=== PATIENT | female | born 1955 | race Caucasian/White ===

== ENCOUNTER → 2020-06-19 13:03 | Outpatient (BNVA) | payer OTHER, SELFPAY | PROVIDERS: PCP Student in an Organized Health Care Education/Training Program; Visit Provider Hospitalist | DX: J44.9 Chronic obstructive pulmonary disease, unspecified (principal); G47.33 Obstructive sleep apnea (adult) (pediatric); Z79.52 Long term (current) use of systemic steroids; Z87.891 Personal history of nicotine dependence; Z99.89 Dependence on other enabling machines and devices | CPT/HCPCS: 99212 ==

== ENCOUNTER 2020-09-19 12:50 | Outpatient (REF) | payer OTHER, SELFPAY ==
[2020-09-19 14:10] LABS: MANUAL DIFF FLAG NO
[2020-09-19 14:20] LABS: Basophils Absolute Auto 0.1 X10*3/uL (0.0-0.2); Basophils Percent Auto 0.6 % (0-2); Eosinophils Absolute Auto 0.4 X10*3/uL (0.0-0.4); Eosinophils Percent Auto 4.1 % (0-4); Hematocrit 44.3 % (37-47); Hemoglobin 14.5 g/dl (12.0-16.0); Imm Gran Abs Auto 0.02 X10*3/uL (0.00-0.03); Imm Gran Pct Auto 0.2 % (0.0-0.4); Lymphocytes Absolute Auto 2.8 X10*3/uL (1.2-4.9); Lymphocytes Percent Auto 33.2 % (20-40); Mean Corpuscular HGB Conc 32.7 g/dl (31.0-35.0); Mean Corpuscular Hemoglobin 29.7 pg (27.0-33.0); Mean Corpuscular Volume 90.8 fL (80-98); Mean Platelet Volume 10.6 fL (9.4-12.3); Monocytes Absolute Auto 0.6 X10*3/uL (0.1-1.2); Monocytes Percent Auto 6.5 % (2-11); Neutrophils Absolute Auto 4.7 X10*3/uL (2.0-8.3); Neutrophils Percent Auto 55.4 % (45-73); Platelet Count 235 X10*3/uL (160-400); Red Blood Count 4.88 X10*6/uL (4.20-5.50); Red Cell Distribution Width 12.5 % (11.0-16.0); White Blood Count 8.5 X10*3/uL (4.8-10.8)
[2020-09-19 15:31] LABS: Erythrocyte Sedimentation Rate 14 MM/HR (0-20)
[2020-09-20 08:22] LABS: Immunoglobulin E 616 kU/L (<OR=114)
[2020-09-20 13:57] LABS: IgA 419 mg/dL (70-320); IgG 1092 mg/dL (600-1540); IgM 110 mg/dL (50-300)
[2020-09-21 08:38] LABS: SARS COV2 IgG Negative (Negative)
== END 2020-09-19 12:51 | disposition home or self-care (01) ==
LOC: HO.LAB 12:50
PROVIDERS: PCP Student in an Organized Health Care Education/Training Program; Visit Provider Hospitalist
DX: J44.9 Chronic obstructive pulmonary disease, unspecified (principal); G47.33 Obstructive sleep apnea (adult) (pediatric); Z79.899 Other long term (current) drug therapy; Z87.891 Personal history of nicotine dependence; Z01.84 Encounter for antibody response examination; Z99.89 Dependence on other enabling machines and devices
CPT/HCPCS: 36415; 82784; 82785; 85025; 85652; 86769; 99212

== ENCOUNTER → 2021-08-24 10:46 | Outpatient (BNVA) | payer OTHER, SELFPAY | PROVIDERS: PCP Student in an Organized Health Care Education/Training Program; Visit Provider Hospitalist | DX: G47.33 Obstructive sleep apnea (adult) (pediatric) (principal); J44.9 Chronic obstructive pulmonary disease, unspecified; Z99.89 Dependence on other enabling machines and devices | CPT/HCPCS: Q3014 ==

== ENCOUNTER 2022-01-31 14:10 | Outpatient (REF) | payer OTHER, SELFPAY ==
--- NOTE | ~2022-01-31 | XR_ITS ---
EXAMINATION: XR CHEST CLINICAL INFORMATION: Cough, unspecified. COMPARISON: Chest done on 10/05/2019. TECHNIQUE: 2 views of the chest were obtained. FINDINGS: Linear pleuroparenchymal airspace disease is noted at both lung bases, appears similar to prior study, consistent with pleuroparenchymal scar. No new airspace abnormalities. The cardiac mediastinal silhouette is within normal limit. Multilevel degenerative spondylosis is present. No evidence of any pleural effusion or pneumothorax. Visualized upper abdomen is unremarkable. Overall no significant change since 10/05/2019. XR/XR chest 2V IMPRESSION: Stable radiographic appearance of the chest, unchanged since 10/05/2019. Specifically, no radiographic evidence of pneumonia.
== END 2022-01-31 14:11 | disposition home or self-care (01) ==
LOC: HO.XRAY 14:10
PROVIDERS: Visit Provider Hospitalist
DX: R05.9 Cough, unspecified (principal); J44.9 Chronic obstructive pulmonary disease, unspecified; G47.33 Obstructive sleep apnea (adult) (pediatric); Z99.89 Dependence on other enabling machines and devices
CPT/HCPCS: 71046; 99212

== ENCOUNTER 2022-05-20 10:14 | Outpatient (REF) | payer OTHER, SELFPAY ==
--- NOTE | 2022-05-20 11:17 | PFT_ITS ---
Forced vital capacity 59%, FEV1 60%, FEV1/FVC ratio is 80. [id number] 59% and MVV 44%. Post bronchodilator therapy, there is no significant change. Total lung capacity 78%. Residual volume 93%. Diffusion capacity 73% CONCLUSION: Findings are consistent with mild restrictive pulmonary disorder and no significant obstructive airway disorder. No response to bronchodilator therapy. Clinical correlation is recommended. The results compared to PFT of 09/30/2019, show that the lung volumes are definitely improved. Diffusion capacity is also slightly improved. Rasheeda Galloway MD MSB/MODL / [id number]
== END 2022-05-20 10:15 | disposition home or self-care (01) ==
LOC: HO.RESP 10:14
PROVIDERS: Visit Provider Hospitalist
DX: J44.9 Chronic obstructive pulmonary disease, unspecified (principal)
CPT/HCPCS: 94060; 94727; 94729

== ENCOUNTER 2022-05-31 11:27 | Outpatient (REF) | payer OTHER, SELFPAY ==
--- NOTE | ~2022-05-31 | XR_ITS ---
EXAMINATION: BILATERAL KNEE CLINICAL INFORMATION: Pain. COMPARISON: None TECHNIQUE: Lateral and sunrise views each knee. FINDINGS: Right knee: There is loss of patellofemoral joint space with periarticular moderate spurring. There are no loose bodies. No bony erosive changes seen. No acute fracture noted. There is mild suprapatellar joint effusion Left knee: There is a loss of patellofemoral compartment joint space with significant periarticular. No loose bodies or bony erosive changes seen. There are enthesophytes along the posterior tibial plateau. No acute fracture or dislocation seen. XR/XR knee LT 2V IMPRESSION: Moderate degenerative arthritic changes bilateral knee. Mild suprapatellar patellar joint effusion right knee.
--- NOTE | ~2022-05-31 | XR_ITS ---
EXAMINATION: BILATERAL KNEE CLINICAL INFORMATION: Pain. COMPARISON: None TECHNIQUE: Lateral and sunrise views each knee. FINDINGS: Right knee: There is loss of patellofemoral joint space with periarticular moderate spurring. There are no loose bodies. No bony erosive changes seen. No acute fracture noted. There is mild suprapatellar joint effusion Left knee: There is a loss of patellofemoral compartment joint space with significant periarticular. No loose bodies or bony erosive changes seen. There are enthesophytes along the posterior tibial plateau. No acute fracture or dislocation seen. XR/XR knee RT 2V IMPRESSION: Moderate degenerative arthritic changes bilateral knee. Mild suprapatellar patellar joint effusion right knee.
--- NOTE | ~2022-05-31 | XR_ITS ---
EXAMINATION: XR KNEE AP STANDING CLINICAL INFORMATION: Knee pain. COMPARISON: None TECHNIQUE: AP bilateral standing view of the knees was obtained. FINDINGS: There is severely loss of medial compartment joint space with periarticular spurring. The lateral compartment joint space is preserved. There is genu varus deformity of bilateral knees slightly greater on the right. No loose bodies, bony erosive changes or fracture seen. XR/XR knee standing BI IMPRESSION: 1. Severe degenerative changes medial compartment both knees with periarticular spurring. 2. There is bilateral genu varus deformity slightly greater on the right.
== END 2022-05-31 11:28 | disposition home or self-care (01) ==
LOC: HO.HOSX 11:27
PROVIDERS: Visit Provider Orthopaedic Surgery
DX: M17.0 Bilateral primary osteoarthritis of knee (principal); E66.01 Morbid (severe) obesity due to excess calories
CPT/HCPCS: 73560; 73565; 99202

== ENCOUNTER → 2022-08-22 12:58 | Outpatient (BNVA) | payer OTHER, SELFPAY | PROVIDERS: PCP Student in an Organized Health Care Education/Training Program; Visit Provider Hospitalist | DX: J44.9 Chronic obstructive pulmonary disease, unspecified (principal); J45.50 Severe persistent asthma, uncomplicated; G47.33 Obstructive sleep apnea (adult) (pediatric) | CPT/HCPCS: 99212 ==

== ENCOUNTER → 2022-09-06 13:37 | Outpatient (BNVA) | payer OTHER, SELFPAY | PROVIDERS: PCP Student in an Organized Health Care Education/Training Program; Visit Provider Hospitalist | DX: J45.50 Severe persistent asthma, uncomplicated (principal) | CPT/HCPCS: 99211 ==

== ENCOUNTER → 2022-11-21 13:03 | Outpatient (BNVA) | payer OTHER, SELFPAY | PROVIDERS: Visit Provider Hospitalist | DX: J45.50 Severe persistent asthma, uncomplicated (principal); J44.9 Chronic obstructive pulmonary disease, unspecified; G47.33 Obstructive sleep apnea (adult) (pediatric); Z23 Encounter for immunization | CPT/HCPCS: 90471; 90677; 99212 ==

== ENCOUNTER → 2023-02-03 13:05 | Outpatient (BNVA) | payer OTHER, SELFPAY | PROVIDERS: Visit Provider Hospitalist | DX: J45.50 Severe persistent asthma, uncomplicated (principal); J44.9 Chronic obstructive pulmonary disease, unspecified; G47.33 Obstructive sleep apnea (adult) (pediatric) | CPT/HCPCS: 99212 ==

== ENCOUNTER → 2023-03-04 13:50 | Outpatient (REF) | payer OTHER, SELFPAY | LOC: HO.SL 13:50 | PROVIDERS: Visit Provider Hospitalist | DX: G47.33 Obstructive sleep apnea (adult) (pediatric) (principal) | CPT/HCPCS: 95806 ==

== ENCOUNTER → 2023-03-04 14:18 | Outpatient (BNV) | payer OTHER, SELFPAY | PROVIDERS: Visit Provider Internal Medicine | DX: G47.33 Obstructive sleep apnea (adult) (pediatric) (principal) | CPT/HCPCS: 95806 ==

== ENCOUNTER 2023-05-05 13:21 | Outpatient (AMB) | payer OTHER, SELFPAY ==
[2023-05-05 13:27] VITALS: PULSE 89; O2SAT 95; BMI 43.5
--- NOTE | 2023-05-05 13:27 | A.OFFVIS_ITS ---
Intake Vital Signs 05/05/23 13:27 Height 5 ft 2 in Weight 238 lb 1.588 oz BMI 43.5 Pulse 89 Pulse Source Pulse Oximeter Pulse Oximetry (%) 95 Oxygen Delivery Method Room Air Intake Visit Reasons: COPD Allergies seafood Allergy (Severe, Verified 05/05/23 13:28) Swelling and Hives ibuprofen [From Motrin] Allergy (Mild, Verified 05/05/23 13:28) Throat Closed montelukast Allergy (Mild, Verified 05/05/23 13:28) Rash benzodiazepine Allergy (Mild, Uncoded 05/05/23 13:28) Rash HPI HPI Comments History of Present Illness Details 68-year-old lady, former under 10 pack-y ear smoker, quit 30 years prior with underlying history of obesity, MIKAELA on CPAP, asthma on Xolair and Trelegy and possible diagnosis of COPD who is transferring her care from [facility]. Patient states that her respiratory symptoms have been well controlled on the current regimen of trilogy, albuterol MDI, and Xolair. She has had CPAP setup with [employer], however she has not been receiving her supplies. She denies any recent asthma exacerbations. She is having difficulties with her CPAP are. Her CPAP is more than 5 years old and she did get initially from [employer]. The CPAP therapy has been affecting beneficial. However, recently she started developing mold inside her machine. She is very reluctant to use it specially because her comorbidities and risks of worsening respiratory status due to the mold exposure. I did call [employer], her [employer] company to see if any arrangements can be made. She has had multiple sleep studies the last when she did get was that [facility]. Did did recommend CPAP of 12 cm. Therefore, I will put her on APAP with a pressure of 10 to 14. 08/22/2022 the patient is here for sick visit. She has continued to have worsening respiratory symptoms with significant wheezing and shortness of breath. Moderate severity. She has been using her nebulizer treatment multiple times a day. She also continues on the Trelegy with good response. Unfortunately, she had a reaction to the generic Daliresp. she had been responding very well to the brand Daliresp and she had significant weight loss and also good control of her asthma. Unfortunately when she stop the brand Daliresp her symptoms started worsening again. She also been on Xolair it does not seem like his controlling her asthma at this time. The patient is going to require additional prednisone at this time. I do believe that considering a different biologic agents such as Dupixent will be a better option for her. Initially I thought that we will provide her the Xolair so therefore I started the process. We have to reach out to the patient to see if this is something that she would want to do. Therefore will maximize her respiratory therapy and see about switching her biologic regimen. In the meantime the patient can also start course of prednisone. 11/21/2022 the patient is here for a pulmonary follow-up visit. Overall she is feeling a lot better. She was recently changed over to Dupixent. Seems to be working better for her. In addition to that she continues on the Trelegy 200. She finally got the brand Daliresp and she is back to taking it. The 1st very happy that her respiratory status is getting better. It may be the case that when she continues on the Dupixent if she continues to do well we can decrease her Trelegy to 100 mcg instead. The patient is sleeping relatively well. Sometimes she has a hard time falling sick although she does have sleep aid. She denies any significant daytime drowsiness he is if she is able to sleep in effective night. Therefore will continue with positional therapy at this time. 02/03/2023 the patient is here for a pulmonary follow-up visit. The patient is doing well. She recently came back from a trip to [place]. It was very hot therapy. She had to use her respiratory therapy more often. Although she did not any prednisone. She has been back on Daliresp which is helping. She is also taking the Dupixent every 2 weeks also has been helpful. She tolerated the decrease in the Trelegy to the 100 mcg dose. However she does have some daytime drowsiness. Her Green score is elevated 12/24. She does have a history sleep apnea in the past. Will go ahead and repeat her home sleep study at this time. I do believe that if she needs to be on CPAP we need to help her tolerate the therapy. Will follow up with the patient after her sleep study. 05/05/2023 the patient is here for a pulmonary follow-up visit. The patient continues to have significant daytime drowsiness. Her Green score is elevated 11/24. We did review her sleep study. She does have significant sleep apnea which is moderate to severe. She has significant hypoxia and significant tachycardia. We talked about the importance of CPAP. We talked about different alternatives which are not optimal for her. Therefore, the best option for her is to use CPAP. The patient is open to restarting. She knows that she needs use it 4 hours a night. will go ahead and order through a local [employer] company the patient will be started on therapy as soon as possible. In the meantime her asthma seems to be good control with the Dupixent. She is also using the Trelegy inhaler. She still having some wheezing but she wants to decrease the Trelegy to the 100 mcg dose which I believe is reasonable. [facility] Medical History (Updated 08/22/22 @ 19:57 by Daniel Schuster MD) Asthma MIKAELA (obstructive sleep apnea) MIKAELA on CPAP Asthma-COPD overlap syndrome Social History (Updated 05/31/22 @ 11:57 by Keren Al RN) Patient Tobacco Use Status: Former Tobacco user Tobacco use type: Cigarette Years Smoked: 4 years Current occupational status: disabled Review of Systems Const Reports daytime sleepiness, Reports difficulty sleeping, Reports headache(s), Denies night sweats and Reports snoring ENT Denies change in voice, Reports headache(s), Denies lip swelling, Denies mouth pain, Reports nasal congestion, Reports nasal discharge and Denies tongue swelling Card Denies chest pain, Denies dyspnea and Reports dyspnea on exertion Resp Reports cough, Denies dyspnea, Reports dyspnea on exertion, Reports snoring and Reports wheezing GI Denies abdominal pain Musc Reports abnormal gait and Reports arthralgias Neuro Denies Neuro-related abnormal movements, Reports abnormal gait and Reports headache(s) Psych Denies no additional complaints Shayne/Lymph Denies easy bleeding and Denies lymphadenopathy Aller/Immun Denies lip swelling, Denies tongue swelling and Reports wheezing Physical Exam Vital Signs: Last Vital Signs Pulse 89 05/05/23 13:27 Pulse Ox 95 05/05/23 13:27 Oxygen Delivery Method Room Air 05/05/23 13:27 BMI result Body Mass Index 43.5 Const General: alert HEENT General nose exam: Abnormal external nose present and Nasal discharge present Eyes Pupils: Equal, round and reactive pupils present Neck Neck: Yes normal visual inspection, Yes full ROM and Yes no lymphadenopathy Chest Chest palpation & inspection: normal inspection of the chest Resp Auscultation: wheezes and diminished lung sounds Cardio Rate: regular rate Rhythm: regular rhythm Heart sounds: S1 normal heart sound present and S2 normal heart sound present GI Palpation (GI): Soft to palpation and nontender Auscultation: normal bowel sounds General: Yes no CVA tenderness Back/Spine/Pelvis Back: no CVA tenderness Skin General skin exam: rashes and/or lesions noted Neuro Cranial nerves: Yes Equal, round and reactive pupils present Assessment & Plan Assessment & Plan (1) Asthma: Code(s): J45.909 - Unspecified asthma, uncomplicated Qualifiers: Asthma complication type: uncomplicated Asthma persistence: persistent Asthma severity: severe Qualified Code(s): J45.50 - Severe persistent asthma, uncomplicated (2) MIKAELA (obstructive sleep apnea): Code(s): G47.33 - Obstructive sleep apnea (adult) (pediatric) (3) Asthma-COPD overlap syndrome: Code(s): J44.9 - Chronic obstructive pulmonary disease, unspecified Plan: Increase Daliresp 500 mcg Add Budesonide Continue Trelegy Zpack Plan continue Dupixent decrease Trelegy 100mcg Continue Daliresp 500 mcg daily short-acting beta agonist as needed start APAP follow-up in 3-4 months Medications: New nmxqfmktpiw-erzjsgtbo-qiyonkcd 100-62.5-25 mcg (Trelegy Ellipta) 1 inh inhalation DAILY 30 days 60 ea 11RF J44.9 - Chronic obstructive pulmonary disease, unspecified Refilled albuterol sulfate 90 mcg/actuation (ProAir HFA) 2 puffs inhalation Q6H 30 days PRN 8.5 grams 11RF shortness of breath or wheezing J45.909 - Unspecified asthma, uncomplicated Discontinued wguhhknlfsz-aqnzhqqym-cdfattlc 200-62.5-25 mcg (Trelegy Ellipta) Discontinued Reason: Doctor's Order 1 inh inhalation DAILY 30 days 60 ea 12RF Coding Level of Care Code Est Pt Level 4 (43492) Diagnoses Severe persistent asthma without complication J45.50 Asthma complication type: uncomplicated Asthma persistence: persistent Asthma severity: severe MIKAELA (obstructive sleep apnea) G47.33 Asthma-COPD overlap syndrome J44.9 Time Spent (min) 17
== END 2023-05-05 14:02 | disposition home or self-care (01) ==
PROVIDERS: Visit Provider Hospitalist
DX: J45.50 Severe persistent asthma, uncomplicated (principal); G47.33 Obstructive sleep apnea (adult) (pediatric); J44.9 Chronic obstructive pulmonary disease, unspecified
CPT/HCPCS: 99214

== ENCOUNTER → 2023-05-05 13:21 | Outpatient (BNVA) | payer OTHER, SELFPAY | PROVIDERS: Visit Provider Hospitalist | DX: J45.50 Severe persistent asthma, uncomplicated (principal); G47.33 Obstructive sleep apnea (adult) (pediatric); J44.9 Chronic obstructive pulmonary disease, unspecified | CPT/HCPCS: 99212 ==

== ENCOUNTER 2023-05-19 13:25 | Outpatient (AMB) | payer OTHER, SELFPAY ==
[2023-05-19 13:29] VITALS: BP 132/77; PULSE 94; O2SAT 95; BMI 48.2
--- NOTE | 2023-05-19 13:29 | A.OFFVIS_ITS ---
Intake Vital Signs 05/19/23 13:29 Height 5 ft 2 in Weight 263 lb 7.238 oz BMI 48.2 BP 132/77 Blood Pressure Location Lt brachial Position Sitting Pulse 94 Pulse Source Doppler Pulse Oximetry (%) 95 Oxygen Delivery Method Room Air Intake Visit Reasons: Asthma Flare-Ups Allergies seafood Allergy (Severe, Verified 05/19/23 13:31) Swelling and Hives ibuprofen [From Motrin] Allergy (Mild, Verified 05/19/23 13:31) Throat Closed montelukast Allergy (Mild, Verified 05/19/23 13:31) Rash benzodiazepine Allergy (Mild, Uncoded 05/05/23 13:28) Rash HPI HPI Comments History of Present Illness Details 68-year-old lady, former under 10 pack-y ear smoker, quit 30 years prior with underlying history of obesity, MIKAELA on CPAP, asthma on Xolair and Trelegy and possible diagnosis of COPD who is transferring her care from [facility]. Patient states that her respiratory symptoms have been well controlled on the current regimen of trilogy, albuterol MDI, and Xolair. She has had CPAP setup with [email or web address], however she has not been receiving her supplies. She denies any recent asthma exacerbations. She is having difficulties with her CPAP are. Her CPAP is more than 5 years old and she did get initially from [email or web address]. The CPAP therapy has been affecting beneficial. However, recently she started developing mold inside her machine. She is very reluctant to use it specially because her comorbidities and risks of worsening respiratory status due to the mold exposure. I did call [email or web address], her [employer] company to see if any arrangements can be made. She has had multiple sleep studies the last when she did get was that [facility]. Did did recommend CPAP of 12 cm. Therefore, I will put her on APAP with a pressure of 10 to 14. 08/22/2022 the patient is here for sick visit. She has continued to have worsening respiratory symptoms with significant wheezing and shortness of breath. Moderate severity. She has been using her nebulizer treatment multiple times a day. She also continues on the Trelegy with good response. Unfortunately, she had a reaction to the generic Daliresp. she had been responding very well to the brand Daliresp and she had significant weight loss and also good control of her asthma. Unfortunately when she stop the brand Daliresp her symptoms started worsening again. She also been on Xolair it does not seem like his controlling her asthma at this time. The patient is going to require additional prednisone at this time. I do believe that considering a different biologic agents such as Dupixent will be a better option for her. Initially I thought that we will provide her the Xolair so therefore I started the process. We have to reach out to the patient to see if this is something that she would want to do. Therefore will maximize her respiratory therapy and see about switching her biologic regimen. In the meantime the patient can also start course of prednisone. 11/21/2022 the patient is here for a pulmonary follow-up visit. Overall she is feeling a lot better. She was recently changed over to Dupixent. Seems to be working better for her. In addition to that she continues on the Trelegy 200. She finally got the brand Daliresp and she is back to taking it. The 1st very happy that her respiratory status is getting better. It may be the case that when she continues on the Dupixent if she continues to do well we can decrease her Trelegy to 100 mcg instead. The patient is sleeping relatively well. Sometimes she has a hard time falling sick although she does have sleep aid. She denies any significant daytime drowsiness he is if she is able to sleep in effective night. Therefore will continue with positional therapy at this time. 02/03/2023 the patient is here for a pulmonary follow-up visit. The patient is doing well. She recently came back from a trip to [place]. It was very hot therapy. She had to use her respiratory therapy more often. Although she did not any prednisone. She has been back on Daliresp which is helping. She is also taking the Dupixent every 2 weeks also has been helpful. She tolerated the decrease in the Trelegy to the 100 mcg dose. However she does have some daytime drowsiness. Her Sterling score is elevated 08/10. She does have a history sleep apnea in the past. Will go ahead and repeat her home sleep study at this time. I do believe that if she needs to be on CPAP we need to help her tolerate the therapy. Will follow up with the patient after her sleep study. 05/05/2023 the patient is here for a pulmonary follow-up visit. The patient continues to have significant daytime drowsiness. Her Sterling score is elevated 11/24. We did review her sleep study. She does have significant sleep apnea which is moderate to severe. She has significant hypoxia and significant tachycardia. We talked about the importance of CPAP. We talked about different alternatives which are not optimal for her. Therefore, the best option for her is to use CPAP. The patient is open to restarting. She knows that she needs use it 4 hours a night. will go ahead and order through a local DME company the patient will be started on therapy as soon as possible. In the meantime her asthma seems to be good control with the Dupixent. She is also using the Trelegy inhaler. She still having some wheezing but she wants to decrease the Trelegy to the 100 mcg dose which I believe is reasonable. 05/19/2023 the patient is here for a pulmonary follow-up visit. The patient continues to have significant daytime drowsiness. Her Sterling score continues to be elevated 11/24. The patient does have moderate to severe sleep apnea with significant hypoxia significant tachycardia during her apneic episodes. She needs to start APAP LETY. The patient had tried CPAP in the past but was not able to tolerated. Now she understands with increased cardiovascular risk factors that the CPAP therapy is very important. She is eager to get back to using it. Part the major issue was the mask fitting. We did talk about different masks chest the F30 I mask which may be a good fit for her. Her asthma continues to be in good control with Dupixent. She continues on the Trelegy and we had decrease the dose to the 100 mcg dose which she seems to be tolerating since the last visit. We will request a APAP machine from a DME company in order for her to be started on therapy as soon as possible. [facility] Medical History (Updated 08/22/22 @ 19:57 by Daniel Schuster MD) Asthma MIKAELA (obstructive sleep apnea) MIKAELA on CPAP Asthma-COPD overlap syndrome Social History Patient Tobacco Use Status: Former Tobacco user Tobacco use type: Cigarette Years Smoked: 4 years Current occupational status: disabled Review of Systems Const Reports daytime sleepiness, Reports difficulty sleeping, Reports headache(s), Denies night sweats and Reports snoring ENT Denies change in voice, Reports headache(s), Denies lip swelling, Denies mouth pain, Reports nasal congestion, Reports nasal discharge and Denies tongue swelling Card Denies chest pain, Denies dyspnea and Reports dyspnea on exertion Resp Reports cough, Denies dyspnea, Reports dyspnea on exertion, Reports snoring and Reports wheezing GI Denies abdominal pain Musc Reports abnormal gait and Reports arthralgias Neuro Denies Neuro-related abnormal movements, Reports abnormal gait and Reports headache(s) Psych Denies no additional complaints Shayne/Lymph Denies easy bleeding and Denies lymphadenopathy Aller/Immun Denies lip swelling, Denies tongue swelling and Reports wheezing Physical Exam Vital Signs: Last Vital Signs Pulse 94 05/19/23 13:29 BP 132/77 05/19/23 13:29 Pulse Ox 95 05/19/23 13:29 Oxygen Delivery Method Room Air 05/19/23 13:29 BMI result Body Mass Index 48.2 Const General: alert HEENT General nose exam: Abnormal external nose present and Nasal discharge present Eyes Pupils: Equal, round and reactive pupils present Neck Neck: Yes normal visual inspection, Yes full ROM and Yes no lymphadenopathy Chest Chest palpation & inspection: normal inspection of the chest Resp Auscultation: no wheezes and diminished lung sounds Cardio Rate: regular rate Rhythm: regular rhythm Heart sounds: S1 normal heart sound present and S2 normal heart sound present GI Palpation (GI): Soft to palpation and nontender Auscultation: normal bowel sounds General: Yes no CVA tenderness Back/Spine/Pelvis Back: no CVA tenderness Skin General skin exam: rashes and/or lesions noted Neuro Cranial nerves: Yes Equal, round and reactive pupils present Assessment & Plan Assessment & Plan (1) Asthma: Code(s): J45.909 - Unspecified asthma, uncomplicated Qualifiers: Asthma complication type: uncomplicated Asthma persistence: persistent Asthma severity: severe Qualified Code(s): J45.50 - Severe persistent asthma, uncomplicated (2) MIKAELA (obstructive sleep apnea): Code(s): G47.33 - Obstructive sleep apnea (adult) (pediatric) (3) Asthma-COPD overlap syndrome: Code(s): J44.9 - Chronic obstructive pulmonary disease, unspecified Plan: Increase Daliresp 500 mcg Add Budesonide Continue Trelegy Zpack Plan continue Dupixent continue Trelegy 100mcg Continue Daliresp 500 mcg daily (allergic to the generic medicine) short-acting beta agonist as needed start APAP follow-up in 6 months Coding Level of Care Code Est Pt Level 4 (32215) Diagnoses Severe persistent asthma without complication J45.50 Asthma complication type: uncomplicated Asthma persistence: persistent Asthma severity: severe MIKAELA (obstructive sleep apnea) G47.33 Asthma-COPD overlap syndrome J44.9 Time Spent (min) 16
== END 2023-05-19 14:02 | disposition home or self-care (01) ==
PROVIDERS: Visit Provider Hospitalist
DX: J45.50 Severe persistent asthma, uncomplicated (principal); G47.33 Obstructive sleep apnea (adult) (pediatric); J44.9 Chronic obstructive pulmonary disease, unspecified
CPT/HCPCS: 99214

== ENCOUNTER → 2023-05-19 13:25 | Outpatient (BNVA) | payer OTHER, SELFPAY | PROVIDERS: Visit Provider Hospitalist | DX: J45.50 Severe persistent asthma, uncomplicated (principal); J44.9 Chronic obstructive pulmonary disease, unspecified; G47.33 Obstructive sleep apnea (adult) (pediatric) | CPT/HCPCS: 99212 ==

== ENCOUNTER 2023-06-19 13:22 | Outpatient (AMB) | payer OTHER, SELFPAY ==
[2023-06-19 13:27] VITALS: PULSE 88; O2SAT 95; BMI 48.2
--- NOTE | 2023-06-19 13:27 | A.OFFVIS_ITS ---
Intake Vital Signs 06/19/23 13:27 Height 5 ft 2 in Weight 263 lb 7.238 oz BMI 48.2 Pulse 88 Pulse Source Pulse Oximeter Pulse Oximetry (%) 95 Oxygen Delivery Method Room Air Intake Visit Reasons: Sick Visit/Shortness of Breath Supervisor Marble Required: No Allergies seafood Allergy (Severe, Verified 06/19/23 13:28) Swelling and Hives ibuprofen [From Motrin] Allergy (Mild, Verified 06/19/23 13:28) Throat Closed montelukast Allergy (Mild, Verified 06/19/23 13:28) Rash benzodiazepine Allergy (Mild, Uncoded 06/19/23 13:28) Rash HPI HPI Comments History of Present Illness Details 68-year-old lady, former under 10 pack-y ear smoker, quit 30 years prior with underlying history of obesity, MIKAELA on CPAP, asthma on Xolair and Trelegy and possible diagnosis of COPD who is transferring her care from [facility] pulmonary. Patient states that her respiratory symptoms have been well controlle d on the current regimen of trilogy, albuterol MDI, and Xolair. She has had CPAP setup with [facility], however she has not been receiving her supplies. She denies any recent asthma exacerbations. She is having difficulties with her CPAP are. Her CPAP is more than 5 years old and she did get initially from [facility]. The CPAP therapy has been affecting beneficial. However, recently she started developing mold inside her machine. She is very reluctant to use it specially because her comorbidities and risks of worsening respiratory status due to the mold exposure. I did call [employer], her [employer] company to see if any arrangements can be made. She has had multiple sleep studies the last when she did get was that [facility]. Did did recommend CPAP of 12 cm. Therefore, I will put her on APAP with a pressure of 10 to 14. 08/22/2022 the patient is here for sick visit. She has continued to have worsening respiratory symptoms with significant wheezing and shortness of breath. Moderate severity. She has been using her nebulizer treatment multiple times a day. She also continues on the Trelegy with good response. Unfortunately, she had a reaction to the generic Daliresp. she had been responding very well to the brand Daliresp and she had significant weight loss and also good control of her asthma. Unfortunately when she stop the brand Daliresp her symptoms started worsening again. She also been on Xolair it does not seem like his controlling her asthma at this time. The patient is going to require additional prednisone at this time. I do believe that considering a different biologic agents such as Dupixent will be a better option for her. Initially I thought that we will provide her the Xolair so therefore I started the process. We have to reach out to the patient to see if this is something that she would want to do. Therefore will maximize her respiratory therapy and see about switching her biologic regimen. In the meantime the patient can also start course of prednisone. 11/21/2022 the patient is here for a pulmonary follow-up visit. Overall she is feeling a lot better. She was recently changed over to Dupixent. Seems to be working better for her. In addition to that she continues on the Trelegy 200. She finally got the brand Daliresp and she is back to taking it. The 1st very happy that her respiratory status is getting better. It may be the case that when she continues on the Dupixent if she continues to do well we can decrease her Trelegy to 100 mcg instead. The patient is sleeping relatively well. Sometimes she has a hard time falling sick although she does have sleep aid. She denies any significant daytime drowsiness he is if she is able to sleep in effective night. Therefore will continue with positional therapy at this time. 02/03/2023 the patient is here for a pulmonary follow-up visit. The patient is doing well. She recently came back from a trip to [place]. It was very hot therapy. She had to use her respiratory therapy more often. Although she did not any prednisone. She has been back on Daliresp which is helping. She is also taking the Dupixent every 2 weeks also has been helpful. She tolerated the decrease in the Trelegy to the 100 mcg dose. However she does have some daytime drowsiness. Her [place] score is elevated 1224. She does have a history sleep apnea in the past. Will go ahead and repeat her home sleep study at this time. I do believe that if she needs to be on CPAP we need to help her tolerate the therapy. Will follow up with the patient after her sleep study. 05/05/2023 the patient is here for a pulmonary follow-up visit. The patient continues to have significant daytime drowsiness. Her [place] score is elevated 11/24. We did review her sleep study. She does have significant sleep apnea which is moderate to severe. She has significant hypoxia and significant tachycardia. We talked about the importance of CPAP. We talked about different alternatives which are not optimal for her. Therefore, the best option for her is to use CPAP. The patient is open to restarting. She knows that she needs use it 4 hours a night. will go ahead and order through a local DME company the patient will be started on therapy as soon as possible. In the meantime her asthma seems to be good control with the Dupixent. She is also using the Trelegy inhaler. She still having some wheezing but she wants to decrease the Trelegy to the 100 mcg dose which I believe is reasonable. 05/19/2023 the patient is here for a pulmonary follow-up visit. The patient continues to have significant daytime drowsiness. Her [place] score continues to be elevated 11/24. The patient does have moderate to severe sleep apnea with significant hypoxia significant tachycardia during her apneic episodes. She needs to start APAP LETY. The patient had tried CPAP in the past but was not able to tolerated. Now she understands with increased cardiovascular risk factors that the CPAP therapy is very important. She is eager to get back to using it. Part the major issue was the mask fitting. We did talk about different masks chest the F30 I mask which may be a good fit for her. Her asthma continues to be in good control with Dupixent. She continues on the Trelegy and we had decrease the dose to the 100 mcg dose which she seems to be tolerating since the last visit. We will request a APAP machine from a DME company in order for her to be started on therapy as soon as possible. 06/19/2023 the patient is here for sick visit. Apparently she was in her usual state health until recently when she went to [place] with her family. While she was there she did a lot of walking. When she came back she started developing worsening chest tightness and cough. Moderate severity. Feels congested but can not expectorate. Denies any fevers or chills. She did get toe state for COVID-19 which was negative. The patient continues use her respir atory therapy her nebulizer although she has not seen any significant improvement. We did bring urine. She did get vaccinated for RSV which is reassuring. Still I did a flu/ RSV/ COVID swab. It all turned out negative. The patient does have increased chest tightness and wheezing with prolonged expiratory phase. She will be treated for an asthma exacerbation. If the patient is no better she will call back the office for further evaluation. [facility] Medical History (Updated 06/19/23 @ 22:49 by Daniel Schuster MD) Asthma MIKAELA (obstructive sleep apnea) MIKAELA on CPAP Asthma-COPD overlap syndrome Social History Patient Tobacco Use Status: Former Tobacco user Tobacco use type: Cigarette Years Smoked: 4 years Current occupational status: disabled Review of Systems Const Reports daytime sleepiness, Reports difficulty sleeping, Reports fatigue, Denies fever(s), Reports headache(s), Denies night sweats and Reports snoring ENT Denies change in voice, Reports headache(s), Denies lip swelling, Denies mouth pain, Reports nasal congestion, Reports nasal discharge and Denies tongue swelling Card Denies chest pain, Denies dyspnea and Reports dyspnea on exertion Resp Reports chest congestion, Reports cough, Denies dyspnea, Reports dyspnea on exertion, Reports snoring and Reports wheezing GI Denies abdominal pain Musc Reports abnormal gait and Reports arthralgias Neuro Denies Neuro-related abnormal movements, Reports abnormal gait and Reports headache(s) Psych Denies no additional complaints Endo Reports fatigue Shayne/Lymph Denies easy bleeding and Denies lymphadenopathy Aller/Immun Denies lip swelling, Denies tongue swelling and Reports wheezing Physical Exam Vital Signs: Last Vital Signs Pulse 88 06/19/23 13:27 Pulse Ox 95 06/19/23 13:27 Oxygen Delivery Method Room Air 06/19/23 13:27 BMI result Body Mass Index 48.2 Const General: no acute distress and alert HEENT General nose exam: Abnormal external nose present and Nasal discharge present Eyes Pupils: Equal, round and reactive pupils present Neck Neck: Yes normal visual inspection, Yes full ROM and Yes no lymphadenopathy Chest Chest palpation & inspection: normal inspection of the chest Resp Effort & Inspection: prolonged expiratory phase Auscultation: wheezes and diminished lung sounds Cardio Rate: regular rate Rhythm: regular rhythm Heart sounds: S1 normal heart sound present and S2 normal heart sound present GI Palpation (GI): Soft to palpation and nontender Auscultation: normal bowel sounds General: Yes no CVA tenderness Back/Spine/Pelvis Back: no CVA tenderness Skin General skin exam: rashes and/or lesions noted Neuro Cranial nerves: Yes Equal, round and reactive pupils present Assessment & Plan Assessment & Plan (1) Asthma: Code(s): J45.909 - Unspecified asthma, uncomplicated Qualifiers: Asthma complication type: with acute exacerbation Asthma persistence: persistent Asthma severity: severe Qualified Code(s): J45.51 - Severe persistent asthma with (acute) exacerbation (2) MIKAELA (obstructive sleep apnea): Code(s): G47.33 - Obstructive sleep apnea (adult) (pediatric) (3) Asthma-COPD overlap syndrome: Code(s): J44.9 - Chronic obstructive pulmonary disease, unspecified Plan: Increase Daliresp 500 mcg Add Budesonide Continue Trelegy Zpack Plan Start Predniaone start Doxycycline Nebulizer therapy continue Dupixent continue Trelegy 100mcg Continue Daliresp 500 mcg daily (allergic to the generic medicine) short-acting beta agonist as needed start APAP, has not heard from her [employer] company as of yet follow-up in 6 months Orders: Orders SARS-CoV2/FLU/RSV Today J45.909 - Unspecified asthma, uncomplicated Medications: New doxycycline hyclate 100 mg PO BID 10 days 20 caps 0RF prednisone PO daily; Take 2 tabs daily x 5 days, then 1 tablet daily x 5 days 10 days 15 tabs 0RF Refilled albuterol sulfate 2.5 mg (3 mL) inhalation Q4H 30 days PRN 360 mL 11RF shortness of breath or wheezing Coding Level of Care Code Est Pt Level 4 (72671) Diagnoses Severe persistent asthma with acute exacerbation J45.51 Asthma complication type: with acute exacerbation Asthma persistence: persistent Asthma severity: severe MIKAELA (obstructive sleep apnea) G47.33 Asthma-COPD overlap syndrome J44.9 Time Spent (min) 16
== END 2023-06-19 13:44 | disposition home or self-care (01) ==
PROVIDERS: Visit Provider Hospitalist
DX: J45.51 Severe persistent asthma with (acute) exacerbation (principal); G47.33 Obstructive sleep apnea (adult) (pediatric); J44.9 Chronic obstructive pulmonary disease, unspecified
CPT/HCPCS: 99214

== ENCOUNTER 2023-06-19 13:22 | Outpatient (REF) | payer OTHER, SELFPAY ==
[2023-06-19 14:30] LABS: Influenza A PCR NEGATIVE (Negative); Influenza B PCR NEGATIVE (Negative); Resp Syncy Virus RNA Qual PCR NEGATIVE (Negative); SARS COV2 PCR INHOUSE NEGATIVE (Negative)
== END 2023-06-19 13:23 | disposition home or self-care (01) ==
LOC: CF 13:22
PROVIDERS: Visit Provider Hospitalist
DX: J44.9 Chronic obstructive pulmonary disease, unspecified (principal); J45.51 Severe persistent asthma with (acute) exacerbation; R06.02 Shortness of breath; G47.33 Obstructive sleep apnea (adult) (pediatric); Z87.891 Personal history of nicotine dependence; Z99.89 Dependence on other enabling machines and devices
CPT/HCPCS: 0241U; 99212

== ENCOUNTER 2023-11-03 14:12 | Outpatient (AMB) | payer OTHER, SELFPAY ==
[2023-11-03 14:15] VITALS: PULSE 81; O2SAT 96
--- NOTE | 2023-11-03 14:15 | MHC.OFFVIS ---
Intake Vital Signs 11/03/23 14:15 Height 5 ft 2 in Weight 26 lb BMI 4.8 Pulse 81 Pulse Source Pulse Oximeter Pulse Oximetry (%) 96 Oxygen Delivery Method Room Air Intake Visit Reasons: COPD Pst Supervisor Required: No Allergies seafood Allergy (Severe, Verified 11/03/23 14:16) Swelling and Hives ibuprofen [From Motrin] Allergy (Mild, Verified 11/03/23 14:16) Throat Closed montelukast Allergy (Mild, Verified 11/03/23 14:16) Rash benzodiazepine Allergy (Mild, Uncoded 11/03/23 14:16) Rash HPI HPI Comments History of Present Illness Details 68-year-old lady, former under 10 pack-year smoker, quit 30 years prior with underlying history of obesity, MIKAELA on CPAP, asthma on Xolair and Trelegy and possible diagnosis of COPD who is transferring her care from [facility]. Patient states that her respiratory symptoms have been well controlled on the current regimen of trilogy, albuterol MDI, and Xolair. She has had CPAP setup with [facility] [facility], however she has not been receiving her supplies. She denies any recent asthma exacerbations. She is having difficulties with her CPAP are. Her CPAP is more than 5 years old and she did get initially from [facility] [facility]. The CPAP therapy has been affecting beneficial. However, recently she started developing mold inside her machine. She is very reluctant to use it specially because her comorbidities and risks of worsening respiratory status due to the mold exposure. I did call [employer], her [employer] company to see if any arrangements can be made. She has had multiple sleep studies the last when she did get was that [facility]. Did did recommend CPAP of 12 cm. Therefore, I will put her on APAP with a pressure of 10 to 14. 08/22/2022 the patient is here for sick visit. She has continued to have worsening respiratory symptoms with significant wheezing and shortness of breath. Moderate severity. She has been using her nebulizer treatment multiple times a day. She also continues on the Trelegy with good response. Unfortunately, she had a reaction to the generic Daliresp. she had been responding very well to the brand Daliresp and she had significant weight loss and also good control of her asthma. Unfortunately when she stop the brand Daliresp her symptoms started worsening again. She also been on Xolair it does not seem like his controlling her asthma at this time. The patient is going to require additional prednisone at this time. I do believe that considering a different biologic agents such as Dupixent will be a better option for her. Initially I thought that we will provide her the Xolair so therefore I started the process. We have to reach out to the patient to see if this is something that she would want to do. Therefore will maximize her respiratory therapy and see about switching her biologic regimen. In the meantime the patient can also start course of prednisone. 11/21/2022 the patient is here for a pulmonary follow-up visit. Overall she is feeling a lot better. She was recently changed over to Dupixent. Seems to be working better for her. In addition to that she continues on the Trelegy 200. She finally got the brand Daliresp and she is back to taking it. The 1st very happy that her respiratory status is getting better. It may be the case that when she continues on the Dupixent if she continues to do well we can decrease her Trelegy to 100 mcg instead. The patient is sleeping relatively well. Sometimes she has a hard time falling sick although she does have sleep aid. She denies any significant daytime drowsiness he is if she is able to sleep in effective night. Therefore will continue with positional therapy at this time. 02/03/2023 the patient is here for a pulmonary follow-up visit. The patient is doing well. She recently came back from a trip to [place]. It was very hot therapy. She had to use her respiratory therapy more often. Although she did not any prednisone. She has been back on Daliresp which is helping. She is also taking the Dupixent every 2 weeks also has been helpful. She tolerated the decrease in the Trelegy to the 100 mcg dose. However she does have some daytime drowsiness. Her [place] score is elevated 12/24. She does have a history sleep apnea in the past. Will go ahead and repeat her home sleep study at this time. I do believe that if she needs to be on CPAP we need to help her tolerate the therapy. Will follow up with the patient after her sleep study. 05/05/2023 the patient is here for a pulmonary follow-up visit. The patient continues to have significant daytime drowsiness. Her [place] score is elevated 11/24. We did review her sleep study. She does have significant sleep apnea which is moderate to severe. She has significant hypoxia and significant tachycardia. We talked about the importance of CPAP. We talked about different alternatives which are not optimal for her. Therefore, the best option for her is to use CPAP. The patient is open to restarting. She knows that she needs use it 4 hours a night. will go ahead and order through a local DME company the patient will be started on therapy as soon as possible. In the meantime her asthma seems to be good control with the Dupixent. She is also using the Trelegy inhaler. She still having some wheezing but she wants to decrease the Trelegy to the 100 mcg dose which I believe is reasonable. 05/19/2023 the patient is here for a pulmonary follow-up visit. The patient continues to have significant daytime drowsiness. Her [place] score continues to be elevated 07/11. The patient does have moderate to severe sleep apnea with significant hypoxia significant tachycardia during her apneic episodes. She needs to start APAP LETY. The patient had tried CPAP in the past but was not able to tolerated. Now she understands with increased cardiovascular risk factors that the CPAP therapy is very important. She is eager to get back to using it. Part the major issue was the mask fitting. We did talk about different masks chest the F30 I mask which may be a good fit for her. Her asthma continues to be in good control with Dupixent. She continues on the Trelegy and we had decrease the dose to the 100 mcg dose which she seems to be tolerating since the last visit. We will request a APAP machine from a DME company in order for her to be started on therapy as soon as possible. 06/19/2023 the patient is here for sick visit. Apparently she was in her usual state health until recently when she went to [place] with her family. While she was there she did a lot of walking. When she came back she started developing worsening chest tightness and cough. Moderate severity. Feels congested but can not expectorate. Denies any fevers or chills. She did get toe state for COVID-19 which was negative. The patient continues use her respiratory therapy her nebulizer although she has not seen any significant improvement. We did bring urine. She did get vaccinated for RSV which is reassuring. Still I did a flu/ RSV/ COVID swab. It all turned out negative. The patient does have increased chest tightness and wheezing with prolonged expiratory phase. She will be treated for an asthma exacerbation. If the patient is no better she will call back the office for further evaluation. 11/03/2023 the patient is here for a hospital follow-up visit. She was in usual state health until back in September when she is developed worsening respiratory symptoms. Positive sick contacts. Significant chest congestion and cough. She could not tolerate his symptoms and longer and she did go to the [facility]. The patient was evaluated by a [facility]. She had a chest x-ray which I personally reviewed demonstrating a hazy opacity in the right lower lobe area and also to some degree on the left. I did compare to her previous chest x-ray which she did not have those changes. Therefore she likely had a component of bronchopneumonia exacerbating her asthma. The patient did have antibiotics Augmentin which help. She also continue with respiratory therapy and she finish her course of prednisone. Now she is back to her baseline. The patient has been feeling better. She is tolerating respiratory therapy.. Will plan to repeat a chest x-ray to make sure that she has resolution of the airspace disease. The patient should return in 3-4 months or sooner if she develops any worsening symptoms. [facility] Medical History (Updated 11/03/23 @ 14:38 by Daniel Schuster MD) Bronchopneumonia Asthma MIKAELA (obstructive sleep apnea) MIKAELA on CPAP Asthma-COPD overlap syndrome Social History Patient Tobacco Use Status: Former Tobacco user Tobacco use type: Cigarette Years Smoked: 4 years Current occupational status: disabled Review of Systems Const Reports daytime sleepiness, Reports difficulty sleeping, Reports fatigue, Denies fever(s), Reports headache(s), Denies night sweats and Reports snoring ENT Denies change in voice, Reports headache(s), Denies lip swelling, Denies mouth pain, Reports nasal congestion, Reports nasal discharge and Denies tongue swelling Card Denies chest pain, Denies dyspnea and Reports dyspnea on exertion Resp Reports chest congestion, Reports cough, Denies dyspnea, Reports dyspnea on exertion, Reports snoring and Reports wheezing GI Denies abdominal pain Musc Reports abnormal gait and Reports arthralgias Neuro Denies Neuro-related abnormal movements, Reports abnormal gait and Reports headache(s) Psych Denies no additional complaints Endo Reports fatigue Shayne/Lymph Denies easy bleeding and Denies lymphadenopathy Aller/Immun Denies lip swelling, Denies tongue swelling and Reports wheezing Physical Exam Vital Signs: Last Vital Signs Pulse 81 11/03/23 14:15 Pulse Ox 96 11/03/23 14:15 Oxygen Delivery Method Room Air 11/03/23 14:15 BMI result Body Mass Index 4.8 Const General: no acute distress and alert HEENT General nose exam: Abnormal external nose present and Nasal discharge present Eyes Pupils: Equal, round and reactive pupils present Neck Neck: Yes normal visual inspection, Yes full ROM and Yes no lymphadenopathy Chest Chest palpation & inspection: normal inspection of the chest Resp Effort & Inspection: prolonged expiratory phase Auscultation: no wheezes and diminished lung sounds Cardio Rate: regular rate Rhythm: regular rhythm Heart sounds: S1 normal heart sound present and S2 normal heart sound present GI Palpation (GI): Soft to palpation and nontender Auscultation: normal bowel sounds General: Yes no CVA tenderness Back/Spine/Pelvis Back: no CVA tenderness Skin General skin exam: rashes and/or lesions noted Neuro Cranial nerves: Yes Equal, round and reactive pupils present Assessment & Plan Assessment & Plan (1) Asthma: Code(s): J45.909 - Unspecified asthma, uncomplicated Qualifiers: Asthma complication type: with acute exacerbation Asthma persistence: persistent Asthma severity: severe Qualified Code(s): J45.51 - Severe persistent asthma with (acute) exacerbation (2) MIKAELA (obstructive sleep apnea): Code(s): G47.33 - Obstructive sleep apnea (adult) (pediatric) (3) Asthma-COPD overlap syndrome: Code(s): J44.9 - Chronic obstructive pulmonary disease, unspecified Plan: Increase Daliresp 500 mcg Add Budesonide Continue Trelegy Margauxck (4) Bronchopneumonia: Code(s): J18.0 - Bronchopneumonia, unspecified organism Plan Nebulizer therapy continue Dupixent, monitor eye changes eye drops for 3-4 days continue Trelegy 100mcg Continue Daliresp 500 mcg daily (allergic to the generic medicine) short-acting beta agonist as needed APAP, has not heard from her [employer] company as of yet CXR follow-up in 4-6 months Orders: Orders XR chest 2V Today J18.0 - Bronchopneumonia, unspecified organism Medications: New prednisolone acetate 0.12% 1 drp ophthalmic (eye) QID 4 days 5 mL 0RF Coding Level of Care Code Est Pt Level 4 (70278) Diagnoses Severe persistent asthma with acute exacerbation J45.51 Asthma complication type: with acute exacerbation Asthma persistence: persistent Asthma severity: severe MIKAELA (obstructive sleep apnea) G47.33 Asthma-COPD overlap syndrome J44.9 Bronchopneumonia J18.0 Time Spent (min) 18
== END 2023-11-03 14:42 | disposition home or self-care (01) ==
PROVIDERS: PCP Internal Medicine; Visit Provider Hospitalist
DX: J45.51 Severe persistent asthma with (acute) exacerbation (principal); G47.33 Obstructive sleep apnea (adult) (pediatric); J44.9 Chronic obstructive pulmonary disease, unspecified; J18.0 Bronchopneumonia, unspecified organism
CPT/HCPCS: 99214

== ENCOUNTER → 2023-11-03 14:12 | Outpatient (BNVA) | payer OTHER, SELFPAY | PROVIDERS: PCP Internal Medicine; Visit Provider Hospitalist | DX: G47.33 Obstructive sleep apnea (adult) (pediatric) (principal); J45.51 Severe persistent asthma with (acute) exacerbation; J44.9 Chronic obstructive pulmonary disease, unspecified; J18.0 Bronchopneumonia, unspecified organism | CPT/HCPCS: 99212 ==

== ENCOUNTER 2024-02-23 12:59 | Outpatient (AMB) | payer OTHER, SELFPAY ==
[2024-02-23 13:06] VITALS: PULSE 87; O2SAT 96; BMI 48.0
--- NOTE | 2024-02-23 13:06 | A.OFFVIS_ITS ---
Vital Signs 02/23/24 13:06 Height 5 ft 2 in Weight 262 lb 5.601 oz BMI 48.0 Pulse 87 Pulse Source Pulse Oximeter Pulse Oximetry (%) 96 Oxygen Delivery Method Room Air Intake Visit Reasons: COPD Hand Cutter Required: No Allergies seafood Allergy (Severe, Verified 02/23/24 13:08) Swelling and Hives ibuprofen [From Motrin] Allergy (Mild, Verified 02/23/24 13:08) Throat Closed montelukast Allergy (Mild, Verified 02/23/24 13:08) Rash benzodiazepine Allergy (Mild, Uncoded 02/23/24 13:08) Rash HPI Comments Details: 69-year-old lady, former under 10 pack-year smoker, quit 30 years prior with underlying history of obesity, MIKAELA on CPAP, asthma on Xolair and Trelegy and possible diagnosis of COPD who is transferring her care from [facility]. Patient states that her respiratory symptoms have been well controlled on the current regimen of trilogy, albuterol MDI, and Xolair. She has had CPAP setup with [employer], however she has not been receiving her supplies. She denies any recent asthma exacerbations. She is having difficulties with her CPAP are. Her CPAP is more than 5 years old and she did get initially from [employer]. The CPAP therapy has been affecting beneficial. However, recently she started developing mold inside her machine. She is very reluctant to use it specially because her comorbidities and risks of worsening respiratory status due to the mold exposure. I did call [employer], her [employer] company to see if any arrangements can be made. She has had multiple sleep studies the last when she did get was that [facility]. Did did recommend CPAP of 12 cm. Therefore, I will put her on APAP with a pressure of 10 to 14. 08/22/2022 the patient is here for sick visit. She has continued to have worsening respiratory symptoms with significant wheezing and shortness of breath. Moderate severity. She has been using her nebulizer treatment multiple times a day. She also continues on the Trelegy with good response. Unfortunately, she had a reaction to the generic Daliresp. she had been responding very well to the brand Daliresp and she had significant weight loss and also good control of her asthma. Unfortunately when she stop the brand Daliresp her symptoms started worsening again. She also been on Xolair it does not seem like his controlling her asthma at this time. The patient is going to require additional prednisone at this time. I do believe that considering a different biologic agents such as Dupixent will be a better option for her. Initially I thought that we will provide her the Xolair so therefore I started the process. We have to reach out to the patient to see if this is something that she would want to do. Therefore will maximize her respiratory therapy and see about switching her biologic regimen. In the meantime the patient can also start course of prednisone. 11/21/2022 the patient is here for a pulmonary follow-up visit. Overall she is feeling a lot better. She was recently changed over to Dupixent. Seems to be working better for her. In addition to that she continues on the Trelegy 200. She finally got the brand Daliresp and she is back to taking it. The 1st very happy that her respiratory status is getting better. It may be the case that when she continues on the Dupixent if she continues to do well we can decrease her Trelegy to 100 mcg instead. The patient is sleeping relatively well. Sometimes she has a hard time falling sick although she does have sleep aid. She denies any significant daytime drowsiness he is if she is able to sleep in effective night. Therefore will continue with positional therapy at this time. 02/03/2023 the patient is here for a pulmonary follow-up visit. The patient is doing well. She recently came back from a trip to [place]. It was very hot therapy. She had to use her respiratory therapy more often. Although she did not any prednisone. She has been back on Daliresp which is helping. She is also taking the Dupixent every 2 weeks also has been helpful. She tolerated the decrease in the Trelegy to the 100 mcg dose. However she does have some daytime drowsiness. Her [place] score is elevated 12/24. She does have a history sleep apnea in the past. Will go ahead and repeat her home sleep study at this time. I do believe that if she needs to be on CPAP we need to help her tolerate the therapy. Will follow up with the patient after her sleep study. 05/05/2023 the patient is here for a pulmonary follow-up visit. The patient continues to have significant daytime drowsiness. Her F[place]ont score is elevated 11/24. We did review her sleep study. She does have significant sleep apnea which is moderate to severe. She has significant hypoxia and significant tachycardia. We talked about the importance of CPAP. We talked about different alternatives which are not optimal for her. Therefore, the best option for her is to use CPAP. The patient is open to restarting. She knows that she needs use it 4 hours a night. will go ahead and order through a local DME company the patient will be started on therapy as soon as possible. In the meantime her asthma seems to be good control with the Dupixent. She is also using the Trelegy inhaler. She still having some wheezing but she wants to decrease the Trelegy to the 100 mcg dose which I believe is reasonable. 05/19/2023 the patient is here for a pulmonary follow-up visit. The patient continues to have significant daytime drowsiness. Her F[place] score continues to be elevated 07/11. The patient does have moderate to severe sleep apnea with significant hypoxia significant tachycardia during her apneic episodes. She needs to start APAP LETY. The patient had tried CPAP in the past but was not able to tolerated. Now she understands with increased cardiovascular risk factors that the CPAP therapy is very important. She is eager to get back to using it. Part the major issue was the mask fitting. We did talk about different masks chest the F30 I mask which may be a good fit for her. Her asthma continues to be in good control with Dupixent. She continues on the Trelegy and we had decrease the dose to the 100 mcg dose which she seems to be tolerating since the last visit. We will request a APAP machine from a DME company in order for her to be started on therapy as soon as possible. 06/19/2023 the patient is here for sick visit. Apparently she was in her usual state health until recently when she went to [place] with her family. While she was there she did a lot of walking. When she came back she started developing worsening chest tightness and cough. Moderate severity. Feels congested but can not expectorate. Denies any fevers or chills. She did get toe state for COVID-19 which was negative. The patient continues use her respiratory therapy her nebulizer although she has not seen any significant improvement. We did bring urine. She did get vaccinated for RSV which is reassuring. Still I did a flu/ RSV/ COVID swab. It all turned out negative. The patient does have increased chest tightness and wheezing with prolonged expiratory phase. She will be treated for an asthma exacerbation. If the patient is no better she will call back the office for further evaluation. 11/03/2023 the patient is here for a hospital follow-up visit. She was in usual state health until back in September when she is developed worsening respiratory symptoms. Positive sick contacts. Significant chest congestion and cough. She could not tolerate his symptoms and longer and she did go to the [facility]. The [facility]. She had a chest x-ray which I personally reviewed demonstrating a hazy opacity in the right lower lobe area and also to some degree on the left. I did compare to her previous chest x-ray which she did not have those changes. Therefore she likely had a component of bronchopneumonia exacerbating her asthma. The patient did mchugh ve antibiotics Augmentin which help. She also continue with respiratory therapy and she finish her course of prednisone. Now she is back to her baseline. The patient has been feeling better. She is tolerating respiratory therapy.. Will plan to repeat a chest x-ray to make sure that she has resolution of the airspace disease. The patient should return in 3-4 months or sooner if she develops any worsening symptoms. 02/23/2024 the patient is here for a pulmonary follow-up visit. She still complains of significant dyspnea on exertion. She did have a recent Holter monitor but she has not gotten the results. She is wondering if she needs oxygen. During the office visit we did taken for brief walking oximetry. The patient used use a cane and also has a wheelchair. Very limited. Even with very limited activity she was very short of breath during our brief ambulation while she was using a cane. Dyspnea score was 7/10. Heart rate went up to about 130 beats per minute which was regular. And her pulse ox 95%. Explained to her that her work of breathing is mainly due to the elevated heart rate and she does have enough pulmonary reserve to maintain her pulse ox reasonable. Will have her undergo blood work to make sure she does not have any significant anemia or look for heart failure. She does have significant lower extremity edema likely contributing to her symptoms. I do believe that a brief diuretics will help her with her cardiac function. The patient also has having significant shortness breath while sleeping. Will go ahead and request an overnight oximetry at this time. [facility] Medical History (Updated 02/23/24 @ 21:30 by Daniel Schuster MD) Tachycardia Bronchopneumonia Asthma MIKAELA (obstructive sleep apnea) MIKAELA on CPAP Asthma-COPD overlap syndrome Social History Patient Tobacco Use Status: Former Tobacco user Tobacco use type: Cigarette Years Smoked: 4 years Current occupational status: disabled Review of Systems Const Reports daytime sleepiness, Reports difficulty sleeping, Reports fatigue, Denies fever(s), Reports headache(s), Denies night sweats and Reports snoring ENT Denies change in voice, Reports headache(s), Denies lip swelling, Denies mouth pain, Reports nasal congestion, Reports nasal discharge and Denies tongue swelling Card Denies chest pain, Denies dyspnea and Reports dyspnea on exertion Resp Reports chest congestion, Reports cough, Denies dyspnea, Reports dyspnea on exertion, Reports snoring and Reports wheezing GI Denies abdominal pain Musc Reports abnormal gait and Reports arthralgias Neuro Denies Neuro-related abnormal movements, Reports abnormal gait and Reports headache(s) Psych Denies no additional complaints Endo Reports fatigue Shayne/Lymph Denies easy bleeding and Denies lymphadenopathy Aller/Immun Denies lip swelling, Denies tongue swelling and Reports wheezing Physical Exam Vital Signs: Last Vital Signs Pulse 87 02/23/24 13:06 Pulse Ox 96 02/23/24 13:06 Oxygen Delivery Method Room Air 02/23/24 13:06 BMI result Body Mass Index 48.0 Const General: no acute distress and alert HEENT General nose exam: Abnormal external nose present and Nasal discharge present Eyes Pupils: Equal, round and reactive pupils present Neck Neck: Yes normal visual inspection, Yes full ROM and Yes no lymphadenopathy Chest Chest palpation & inspection: normal inspection of the chest Resp Effort & Inspection: prolonged expiratory phase Auscultation: no wheezes and diminished lung sounds Cardio Rate: tachycardic Rhythm: regular rhythm Heart sounds: S1 normal heart sound present and S2 normal heart sound present GI Palpation (GI): Soft to palpation and nontender Auscultation: normal bowel sounds General: Yes no CVA tenderness Back/Spine/Pelvis Back: no CVA tenderness Skin General skin exam: rashes and/or lesions noted Neuro Cranial nerves: Yes Equal, round and reactive pupils present Assessment & Plan Assessment & Plan (1) Asthma: Code(s): J45.909 - Unspecified asthma, uncomplicated Category: Medical Qualifiers: Asthma complication type: with acute exacerbation Asthma persistence: persistent Asthma severity: severe Qualified Code(s): J45.51 - Severe persistent asthma with (acute) exacerbation (2) Asthma-COPD overlap syndrome: Code(s): J44.9 - Chronic obstructive pulmonary disease, unspecified Category: Medical Plan: Increase Daliresp 500 mcg Add Budesonide Continue Trelegy Zpack (3) Cough: Code(s): R05.9 - Cough, unspecified Category: Medical Qualifiers: Cough type: unspecified Qualified Code(s): R05.9 - Cough, unspecified (4) Tachycardia: Code(s): R00.0 - Tachycardia, unspecified Category: Medical Plan Nebulizer therapy continue Dupixent, monitor eye changes continue Trelegy 100mcg Continue Daliresp 500 mcg daily (allergic to the generic medicine) short-acting beta agonist as needed overnight oximetry lasix x 3 days Low Na diet F/U with cardiology follow-up in 4-6 months Orders: Orders Complete Blood Count Auto Diff Today I50.9 - Heart failure, unspecified, R00.0 - Tachycardia, unspecified Basic Metabolic Panel Today I50.9 - Heart failure, unspecified, R00.0 - Tachycardia, unspecified Troponin-I High Sensitivity Today I50.9 - Heart failure, unspecified, R00.0 - Tachycardia, unspecified Overnight Pulse Oximetry Today J44.9 - Chronic obstructive pulmonary disease, unspecified B Type Natriuretic Peptide Today I50.9 - Heart failure, unspecified, R00.0 - Tachycardia, unspecified Medications: New prednisone PO daily; Take 2 tabs daily x 5 days, then 1 tablet daily x 5 days 15 tabs 0RF 10 days furosemide (Lasix) 20 mg PO DAILY 7 tabs 0RF 7 days Coding Level of Care Code Est Pt Level 4 (50216) Diagnoses Severe persistent asthma with acute exacerbation J45.51 Asthma complication type: with acute exacerbation Asthma persistence: persistent Asthma severity: severe Asthma-COPD overlap syndrome J44.9 Cough, unspecified type R05.9 Cough type: unspecified Tachycardia R00.0 Time Spent (min) 18
== END 2024-02-23 13:28 | disposition home or self-care (01) ==
PROVIDERS: PCP Internal Medicine; Visit Provider Hospitalist
DX: J45.51 Severe persistent asthma with (acute) exacerbation (principal); J44.9 Chronic obstructive pulmonary disease, unspecified; R05.9 Cough, unspecified; R00.0 Tachycardia, unspecified
CPT/HCPCS: 99214

== ENCOUNTER 2024-02-23 12:59 | Outpatient (REF) | payer OTHER, SELFPAY ==
--- NOTE | ~2024-02-23 | XR_ITS ---
EXAMINATION: XR CHEST CLINICAL INFORMATION: Bronchopneumonia. COMPARISON: 01/31/2022, 10/05/2019. TECHNIQUE: 2 views of the chest were obtained. FINDINGS: There is no gross pneumothorax. Lung volumes are low. Stable cardiomediastinal silhouette. No significant pleural effusion. Degenerative changes in the thoracic spine. Redemonstration of bibasilar streaky opacities characteristic of atelectasis/scar/chronic change. Increased linear and hazy bibasilar opacities may represent additional atelectasis/scar, although an infectious/inflammatory process should also be considered in the appropriate clinical setting. XR/XR chest 2V IMPRESSION: Redemonstration of bibasilar streaky opacities characteristic of atelectasis/scar/chronic change. Increased linear and hazy bibasilar opacities may represent additional atelectasis/scar, although an infectious/inflammatory process should also be considered in the appropriate clinical setting.
[2024-02-23 13:44] LABS: MANUAL DIFF FLAG NO
[2024-02-23 14:50] LABS: Basophils Percent Auto 0.2 % (0-2); Eosinophils Absolute Auto 0.2 X10*3/uL (0.0-0.4); Eosinophils Percent Auto 1.8 % (0-4); Hematocrit 41.9 % (37.0-47.0); Hemoglobin 13.2 g/dl (12.0-16.0); Imm Gran Abs Auto 0.03 X10*3/uL (0.00-0.03); Imm Gran Pct Auto 0.3 % (0.0-0.4); Lymphocytes Absolute Auto 2.3 X10*3/uL (1.2-4.9); Lymphocytes Percent Auto 24.9 % (20-40); Mean Corpuscular HGB Conc 31.5 g/dl (31.0-35.0); Mean Corpuscular Hemoglobin 29.7 pg (27.0-33.0); Mean Corpuscular Volume 94.2 fL (80.0-98.0); Mean Platelet Volume 10.6 fL (9.4-12.3); Monocytes Absolute Auto 0.5 X10*3/uL (0.1-1.2); Monocytes Percent Auto 5.6 % (2-11); Neutrophils Absolute Auto 6.1 x10*3/uL (2.0-8.3); Neutrophils Percent Auto 67.2 % (45-73); Platelet Count 215 X10*3/uL (160-400); Red Blood Count 4.45 X10*6/uL (4.20-5.50); Red Cell Distribution Width 12.7 % (11.0-16.0); White Blood Count 9.1 X10*3/uL (4.8-10.8)
[2024-02-23 15:08] LABS: B Type Natriuretic Peptide 22 pg/mL (<100)
[2024-02-23 15:13] LABS: Anion Gap 11 (12-20); Blood Urea Nitrogen 9 mg/dL (9-16); Calcium 9.5 mg/dL (8.4-10.2); Carbon Dioxide 29 mmol/L (22-29); Chloride 106 mmol/L (96-108); Estimated Glomerular Filt Rate > 60; Glucose Random 97 mg/dL (60-115); Potassium 3.9 mmol/L (3.3-5.1); Sodium 142 mmol/L (135-145)
[2024-02-23 15:16] LABS: Troponin-I High Sensitivity 4.1 ng/L (<3.5-17.0)
== END 2024-02-23 13:00 | disposition home or self-care (01) ==
LOC: HO.XRAY 12:59
PROVIDERS: PCP Internal Medicine; Visit Provider Hospitalist
DX: J18.0 Bronchopneumonia, unspecified organism (principal); J44.9 Chronic obstructive pulmonary disease, unspecified; J45.51 Severe persistent asthma with (acute) exacerbation; G47.33 Obstructive sleep apnea (adult) (pediatric); R00.0 Tachycardia, unspecified; I50.9 Heart failure, unspecified; Z87.891 Personal history of nicotine dependence; Z99.89 Dependence on other enabling machines and devices
CPT/HCPCS: 36415; 71046; 80048; 83880; 84484; 85025; 99212

== ENCOUNTER 2024-04-27 13:56 | Outpatient (AMB) | payer OTHER, SELFPAY ==
--- NOTE | 2024-04-27 13:59 | A.OFFVIS_ITS ---
Vital Signs 04/27/24 14:00 Height 5 ft 2 in Weight 259 lb BMI 47.4 BP 132/70 Blood Pressure Location Lt brachial Position Sitting Pulse 85 Pulse Source Pulse Oximeter Pulse Oximetry (%) 97 Oxygen Delivery Method Room Air Intake Visit Reasons: COPD Courtesy Clerk Required: No Allergies seafood Allergy (Severe, Verified 04/27/24 14:03) Swelling and Hives ibuprofen [From Motrin] Allergy (Mild, Verified 04/27/24 14:03) Throat Closed montelukast Allergy (Mild, Verified 04/27/24 14:03) Rash benzodiazepine Allergy (Mild, Uncoded 04/27/24 14:03) Rash HPI Comments Details: 69-year-old lady, former under 10 pack-year smoker, quit 30 years prior with underlying history of obesity, MIKAELA on CPAP, asthma on Xolair and Trelegy and possible diagnosis of COPD who is transferring her care from [facility]. Patient states that her respiratory symptoms have been well controlled on the current regimen of trilogy, albuterol MDI, and Xolair. She has had CPAP setup with [employer], however she has not been receiving her supplies. She denies any recent asthma exacerbations. She is having difficulties with her CPAP are. Her CPAP is more than 5 years old and she did get initially from [employer]. The CPAP therapy has been affecting beneficial. However, recently she started developing mold inside her machine. She is very reluctant to use it specially because her comorbidities and risks of worsening respiratory status due to the mold exposure. I did call [employer], her [employer] company to see if any arrangements can be made. She has had multiple sleep studies the last when she did get was that [facility]. Did did recommend CPAP of 12 cm. Therefore, I will put her on APAP with a pressure of 10 to 14. 08/22/2022 the patient is here for sick visit. She has continued to have worsening respiratory symptoms with significant wheezing and shortness of breath. Moderate severity. She has been using her nebulizer treatment multiple times a day. She also continues on the Trelegy with good response. Unfortunately, she had a reaction to the generic Daliresp. she had been responding very well to the brand Daliresp and she had significant weight loss and also good control of her asthma. Unfortunately when she stop the brand Daliresp her symptoms started worsening again. She also been on Xolair it does not seem like his controlling her asthma at this time. The patient is going to require additional prednisone at this time. I do believe that considering a different biologic agents such as Dupixent will be a better option for her. Initially I thought that we will provide her the Xolair so therefore I started the process. We have to reach out to the patient to see if this is something that she would want to do. Therefore will maximize her respiratory therapy and see about switching her biologic regimen. In the meantime the patient can also start course of prednisone. 11/21/2022 the patient is here for a pulmonary follow-up visit. Overall she is feeling a lot better. She was recently changed over to Dupixent. Seems to be working better for her. In addition to that she continues on the Trelegy 200. She finally got the brand Daliresp and she is back to taking it. The 1st very happy that her respiratory status is getting better. It may be the case that when she continues on the Dupixent if she continues to do well we can decrease her Trelegy to 100 mcg instead. The patient is sleeping relatively well. Sometimes she has a hard time falling sick although she does have sleep aid. She denies any significant daytime drowsiness he is if she is able to sleep in effective night. Therefore will continue with positional therapy at this time. 02/03/2023 the patient is here for a pulmonary follow-up visit. The patient is doing well. She recently came back from a trip to [place]. It was very hot therapy. She had to use her respiratory therapy more often. Although she did not any prednisone. She has been back on Daliresp which is helping. She is also taking the Dupixent every 2 weeks also has been helpful. She tolerated the decrease in the Trelegy to the 100 mcg dose. However she does have some daytime drowsiness. Her [place] score is elevated 12/24. She does have a history sleep apnea in the past. Will go ahead and repeat her home sleep study at this time. I do believe that if she needs to be on CPAP we need to help her tolerate the therapy. Will follow up with the patient after her sleep study. 05/05/2023 the patient is here for a pulmonary follow-up visit. The patient continues to have significant daytime drowsiness. Her [place] score is elevated 11/24. We did review her sleep study. She does have significant sleep apnea which is moderate to severe. She has significant hypoxia and significant tachycardia. We talked about the importance of CPAP. We talked about different alternatives which are not optimal for her. Therefore, the best option for her is to use CPAP. The patient is open to restarting. She knows that she needs use it 4 hours a night. will go ahead and order through a local DME company the patient will be started on therapy as soon as possible. In the meantime her asthma seems to be good control with the Dupixent. She is also using the Trelegy inhaler. She still having some wheezing but she wants to decrease the Trelegy to the 100 mcg dose which I believe is reasonable. 05/19/2023 the patient is here for a pulmonary follow-up visit. The patient continues to have significant daytime drowsiness. Her [place] score continues to be elevated 07/11. The patient does have moderate to severe sleep apnea with significant hypoxia significant tachycardia during her apneic episodes. She needs to start APAP LETY. The patient had tried CPAP in the past but was not able to tolerated. Now she understands with increased cardiovascular risk factors that the CPAP therapy is very important. She is eager to get back to using it. Part the major issue was the mask fitting. We did talk about different masks chest the F30 I mask which may be a good fit for her. Her asthma continues to be in good control with Dupixent. She continues on the Trelegy and we had decrease the dose to the 100 mcg dose which she seems to be tolerating since the last visit. We will request a APAP machine from a DME company in order for her to be started on therapy as soon as possible. 06/19/2023 the patient is here for sick visit. Apparently she was in her usual state health until recently when she went to [place] with her family. While she was there she did a lot of walking. When she came back she started developing worsening chest tightness and cough. Moderate severity. Feels congested but can not expectorate. Denies any fevers or chills. She did get toe state for COVID-19 which was negative. The patient continues use her respiratory therapy her nebulizer although she has not seen any significant improvement. We did bring urine. She did get vaccinated for RSV which is reassuring. Still I did a flu/ RSV/ COVID swab. It all turned out negative. The patient does have increased chest tightness and wheezing with prolonged expiratory phase. She will be treated for an asthma exacerbation. If the patient is no better she will call back the office for further evaluation. 11/03/2023 the patient is here for a hospital follow-up visit. She was in usual state health until back in September when she is developed worsening respiratory symptoms. Positive sick contacts. Significant chest congestion and cough. She could not tolerate his symptoms and longer and she did go to the [facility]. The patient was evaluated by a [facility]. She had a chest x-ray which I personally reviewed demonstrating a hazy opacity in the right lower lobe area and also to some degree on the left. I did compare to her previous chest x-ray which she did not have those changes. Therefore she likely had a component of bronchopneumonia exacerbating her asthma. The patient did have antibiotics Augmentin which help. She also continue with respiratory therapy and she finish her course of prednisone. Now she is back to her baseline. The patient has been feeling better. She is tolerating respiratory therapy.. Will plan to repeat a chest x-ray to make sure that she has resolution of the airspace disease. The patient should return in 3-4 months or sooner if she develops any worsening symptoms. 02/23/2024 the patient is here for a pulmonary follow-up visit. She still complains of significant dyspnea on exertion. She did have a recent Holter monitor but she has not gotten the results. She is wondering if she needs o xygen. During the office visit we did taken for brief walking oximetry. The patient used use a cane and also has a wheelchair. Very limited. Even with very limited activity she was very short of breath during our brief ambulation while she was using a cane. Dyspnea score was 7/10. Heart rate went up to about 130 beats per minute which was regular. And her pulse ox 95%. Explained to her that her work of breathing is mainly due to the elevated heart rate and she does have enough pulmonary reserve to maintain her pulse ox reasonable. Will have her undergo blood work to make sure she does not have any significant anemia or look for heart failure. She does have significant lower extremity edema likely contributing to her symptoms. I do believe that a brief diuretics will help her with her cardiac function. The patient also has having significant shortness breath while sleeping. Will go ahead and request an overnight oximetry at this time. [facility] Medical History (Updated 02/23/24 @ 21:30 by Daniel Schuster MD) Tachycardia Bronchopneumonia Asthma MIKAELA (obstructive sleep apnea) MIKAELA on CPAP Asthma-COPD overlap syndrome Social History Patient Tobacco Use Status: Former Tobacco user Tobacco use type: Cigarette Years Smoked: 4 years Current occupational status: disabled Review of Systems Const Reports daytime sleepiness, Reports difficulty sleeping, Reports fatigue, Denies fever(s), Reports headache(s), Denies night sweats and Reports snoring ENT Denies change in voice, Reports headache(s), Denies lip swelling, Denies mouth pain, Reports nasal congestion, Reports nasal discharge and Denies tongue swelling Card Denies chest pain, Denies dyspnea and Reports dyspnea on exertion Resp Reports chest congestion, Reports cough, Denies dyspnea, Reports dyspnea on exertion, Reports snoring and Reports wheezing GI Denies abdominal pain Musc Reports abnormal gait and Reports arthralgias Neuro Denies Neuro-related abnormal movements, Reports abnormal gait and Reports headache(s) Psych Denies no additional complaints Endo Reports fatigue Shayne/Lymph Denies easy bleeding and Denies lymphadenopathy Aller/Immun Denies lip swelling, Denies tongue swelling and Reports wheezing Physical Exam Vital Signs: Last Vital Signs Pulse 85 04/27/24 14:00 BP 132/70 04/27/24 14:00 Pulse Ox 97 04/27/24 14:00 Oxygen Delivery Method Room Air 04/27/24 14:00 BMI result Body Mass Index 47.4 Const General: no acute distress and alert HEENT General nose exam: Abnormal external nose present and Nasal discharge present Eyes Conjunctivae: conjunctival abnormal bilateral conjunctival injection Pupils: Equal, round and reactive pupils present Neck Neck: Yes normal visual inspection, Yes full ROM and Yes no lymphadenopathy Chest Chest palpation & inspection: normal inspection of the chest Resp Effort & Inspection: prolonged expiratory phase Auscultation: wheezes and diminished lung sounds Cardio Rate: tachycardic Rhythm: regular rhythm Heart sounds: S1 normal heart sound present and S2 normal heart sound present GI Palpation (GI): Soft to palpation and nontender Auscultation: normal bowel sounds General: Yes no CVA tenderness Back/Spine/Pelvis Back: no CVA tenderness Skin General skin exam: rashes and/or lesions noted Neuro Cranial nerves: Yes Equal, round and reactive pupils present Assessment & Plan Assessment & Plan (1) Asthma: Code(s): J45.909 - Unspecified asthma, uncomplicated Category: Medical Qualifiers: Asthma complication type: with acute exacerbation Asthma persistence: persistent Asthma severity: severe Qualified Code(s): J45.51 - Severe persistent asthma with (acute) exacerbation (2) Asthma-COPD overlap syndrome: Code(s): J44.9 - Chronic obstructive pulmonary disease, unspecified Category: Medical Plan: Increase Daliresp 500 mcg Add Budesonide Continue Trelegy Zpack (3) Cough: Code(s): R05.9 - Cough, unspecified Category: Medical Qualifiers: Cough type: unspecified Qualified Code(s): R05.9 - Cough, unspecified (4) Tachycardia: Code(s): R00.0 - Tachycardia, unspecified Category: Medical Plan Nebulizer therapy stop Dupixent, worsening conjunctivitis start Tezspire continue Trelegy 100mcg Continue Daliresp 500 mcg daily (allergic to the generic medicine) short-acting beta agonist as needed Low Na diet PFTs would benefit from pulmonary rehab follow-up in 4-6 months Orders: Orders PFT pulmonary function test Today J44.9 - Chronic obstructive pulmonary disease, unspecified Coding Level of Care Code Est Pt Level 4 (06940) Complex EM visit Add On G2211 Diagnoses Severe persistent asthma with acute exacerbation J45.51 Asthma complication type: with acute exacerbation Asthma persistence: persistent Asthma severity: severe Asthma-COPD overlap syndrome J44.9 Cough, unspecified type R05.9 Cough type: unspecified Tachycardia R00.0 Time Spent (min) 17
[2024-04-27 14:00] VITALS: BP 132/70; PULSE 85; O2SAT 97; BMI 47.4
== END 2024-04-27 14:24 | disposition home or self-care (01) ==
PROVIDERS: PCP Internal Medicine; Visit Provider Hospitalist
DX: J45.51 Severe persistent asthma with (acute) exacerbation (principal); J44.9 Chronic obstructive pulmonary disease, unspecified; R05.9 Cough, unspecified; R00.0 Tachycardia, unspecified
CPT/HCPCS: 99214; G2211

== ENCOUNTER → 2024-04-27 13:56 | Outpatient (BNVA) | payer OTHER, SELFPAY | PROVIDERS: PCP Internal Medicine; Visit Provider Hospitalist | DX: J44.9 Chronic obstructive pulmonary disease, unspecified (principal); J45.51 Severe persistent asthma with (acute) exacerbation; R05.9 Cough, unspecified; R00.0 Tachycardia, unspecified; G47.33 Obstructive sleep apnea (adult) (pediatric); Z99.89 Dependence on other enabling machines and devices | CPT/HCPCS: 99212 ==

== ENCOUNTER 2024-05-10 14:15 | Outpatient (RCR) | payer OTHER, SELFPAY ==
[2024-05-10 14:17] VITALS: BP 150/73; PULSE 85; RESP 20; TEMP 36.9; O2SAT 94
== END 2024-06-01 10:37 | disposition home or self-care (01) ==
LOC: HO.INF 14:15
PROVIDERS: Visit Provider Hospitalist
DX: J45.51 Severe persistent asthma with (acute) exacerbation (principal)
CPT/HCPCS: 96372; J2356

== ENCOUNTER 2024-05-20 10:39 | Outpatient (AMB) | payer OTHER, SELFPAY ==
--- NOTE | 2024-05-20 10:43 | A.OFFVIS_ITS ---
Vital Signs 05/20/24 10:47 Height 5 ft 2 in Weight 259 lb 11.272 oz BMI 47.5 BP 132/70 Blood Pressure Location Lt brachial Position Sitting Pulse 82 Pulse Source Pulse Oximeter Pulse Oximetry (%) 97 Oxygen Delivery Method Room Air Intake Visit Reasons: Discuss Tezspire [employer] Sales Assistant Required: No Allergies seafood Allergy (Severe, Verified 05/20/24 10:47) Swelling and Hives ibuprofen [From Motrin] Allergy (Mild, Verified 05/20/24 10:47) Throat Closed montelukast Allergy (Mild, Verified 05/20/24 10:47) Rash tezepelumab-ekko [From Tezspire] Adverse Reaction (Severe, Verified 05/20/24 10:47) Swelling benzodiazepine Allergy (Mild, Uncoded 05/20/24 10:47) Rash HPI Comments Details: 69-year-old lady, former under 10 pack-year smoker, quit 30 years prior with underlying history of obesity, MIKAELA on CPAP, asthma on Xolair and Trelegy and possible diagnosis of COPD who is transferring her care from [facility]. Patient states that her respiratory symptoms have been well controlled on the current regimen of trilogy, albuterol MDI, and Xolair. She has had CPAP setup with [email or web address], however she has not been receiving her supplies. She denies any recent asthma exacerbations. She is having difficulties with her CPAP are. Her CPAP is more than 5 years old and she did get initially from [email or web address]. The CPAP therapy has been affecting beneficial. However, recently she started developing mold inside her machine. She is very reluctant to use it specially because her comorbidities and risks of worsening respiratory status due to the mold exposure. I did call [email or web address], her [employer] company to see if any arrangements can be made. She has had multiple sleep studies the last when she did get was that [facility]. Did did recommend CPAP of 12 cm. Therefore, I will put her on APAP with a pressure of 10 to 14. 08/22/2022 the patient is here for sick visit. She has continued to have w orsening respiratory symptoms with significant wheezing and shortness of breath. Moderate severity. She has been using her nebulizer treatment multiple times a day. She also continues on the Trelegy with good response. Unfortunately, she had a reaction to the generic Daliresp. she had been responding very well to the brand Daliresp and she had significant weight loss and also good control of her asthma. Unfortunately when she stop the brand Daliresp her symptoms started worsening again. She also been on Xolair it does not seem like his controlling her asthma at this time. The patient is going to require additional prednisone at this time. I do believe that considering a different biologic agents such as Dupixent will be a better option for her. Initially I thought that we will pro vide her the Xolair so therefore I started the process. We have to reach out to the patient to see if this is something that she would want to do. Therefore will maximize her respiratory therapy and see about switching her biologic regimen. In the meantime the patient can also start course of prednisone. 11/21/2022 the patient is here for a pulmonary follow-up visit. Overall she is feeling a lot better. She was recently changed over to Dupixent. Seems to be working better for her. In addition to that she continues on the Trelegy 200. She finally got the brand Daliresp and she is back to taking it. The 1st very happy that her respiratory status is getting better. It may be the case that when she continues on the Dupixent if she continues to do well we can decrease her Trelegy to 100 mcg instead. The patient is sleeping relatively well. Sometimes she has a hard time falling sick although she does have sleep aid. She denies any significant daytime drowsiness he is if she is able to sleep in effective night. Therefore will continue with positional therapy at this time. 02/03/2023 the patient is here for a pulmonary follow-up visit. The patient is doing well. She recently came back from a trip to [place]. It was very hot therapy. She had to use her respiratory therapy more often. Although she did not any prednisone. She has been back on Daliresp which is helping. She is also taking the Dupixent every 2 weeks also has been helpful. She tolerated the decrease in the Trelegy to the 100 mcg dose. However she does have some daytime drowsiness. Her [place] score is elevated 08/10. She does have a history sleep apnea in the past. Will go ahead and repeat her home sleep study at this time. I do believe that if she needs to be on CPAP we need to help her tolerate the therapy. Will follow up with the patient after her sleep study. 05/05/2023 the patient is here for a pulmonary follow-up visit. The patient continues to have significant daytime drowsiness. Her [place] score is elevated 11/24. We did review her sleep study. She does have significant sleep apnea which is moderate to severe. She has significant hypoxia and significant tachycardia. We talked about the importance of CPAP. We talked about different alternatives which are not optimal for her. Therefore, the best option for her is to use CPAP. The patient is open to restarting. She knows that she needs use it 4 hours a night. will go ahead and order through a local DME company the patient will be started on therapy as soon as possible. In the meantime her asthma seems to be good control with the Dupixent. She is also using the Trelegy inhaler. She still having some wheezing but she wants to decrease the Trelegy to the 100 mcg dose which I believe is reasonable. 05/19/2023 the patient is here for a pulmonary follow-up visit. The patient continues to have significant daytime drowsiness. Her [place] score continues to be elevated 11/24. The patient does have moderate to severe sleep apnea with significant hypoxia significant tachycardia during her apneic episodes. She needs to start APAP LETY. The patient had tried CPAP in the past but was not able to tolerated. Now she understands with increased cardiovascular risk factors that the CPAP therapy is very important. She is eager to get back to using it. Part the major issue was the mask fitting. We did talk about different masks chest the F30 I mask which may be a good fit for her. Her asthma continues to be in good control with Dupixent. She continues on the Tr elegy and we had decrease the dose to the 100 mcg dose which she seems to be tolerating since the last visit. We will request a APAP machine from a DME company in order for her to be started on therapy as soon as possible. 06/19/2023 the patient is here for sick visit. Apparently she was in her usual state health until recently when she went to [place] with her family. While she was there she did a lot of walking. When she came back she started developing worsening chest tightness and cough. Moderate severity. Feels congested but can not expectorate. Denies any fevers or chills. She did get toe state for COVID-19 which was negative. The patient continues use her respiratory therapy her nebulizer although she has not seen any significant improvement. We did bring urine. She did get vaccinated for RSV which is reassuring. Still I did a flu/ RSV/ COVID swab. It all turned out negative. The patient does have increased chest tightness and wheezing with prolonged ex piratory phase. She will be treated for an asthma exacerbation. If the patient is no better she will call back the office for further evaluation. 11/03/2023 the patient is here for a hospital follow-up visit. She was in usual state health until back in September when she is developed worsening respiratory symptoms. Positive sick contacts. Significant chest congestion and cough. She could not tolerate his symptoms and longer and she did go to the [facility]. The patient was evaluated by a drink care. She had a chest x-ray which I personally reviewed demonstrating a hazy opacity in the right lower lobe area and also to some degree on the left. I did compare to her previous chest x-ray which she did not have those changes. Therefore she likely had a component of bronchopneumonia exacerbating her asthma. The patient did have antibiotics Augmentin which help. She also continue with respiratory therapy and she finish her course of prednisone. Now she is back to her baseline. The patient has been feeling better. She is tolerating respiratory therapy.. Will plan to repeat a chest x-ray to make sure that she has resolution of the airspace disease. The patient should return in 3-4 months or sooner if she develops any worsening symptoms. 02/23/2024 the patient is here for a pulmonary follow-up visit. She still complains of significant dyspnea on exertion. She did have a recent Holter monitor but she has not gotten the results. She is wondering if she needs oxygen. During the office visit we did taken for brief walking oximetry. The patient used use a cane and also has a wheelchair. Very limited. Even with very limited activity she was very short of breath during our brief ambulation while she was using a cane. Dyspnea score was 7/10. Heart rate went up to about 130 beats per minute which was regular. And her pulse ox 95%. Explained to her that her work of breathing is mainly due to the elevated heart rate and she does have enough pulmonary reserve to maintain her pulse ox reasonable. Will have her undergo blood work to make sure she does not have any significant anemia or look for heart failure. She does have significant lower extremity edema likely contributing to her symptoms. I do believe that a brief diuretics will help her with her cardiac function. The patient also has having significant shortness breath while sleeping. Will go ahead and request an overnight oximetry at this time. 05/20/2024 the patient is here for a hospital follow-up visit. Apparently she started the has few days later she started developing significant rash and also joint pains. To the point that she could not even ambulate. She was taken to [facility] where she was briefly admitted to the hospital. She was given steroids. She can not think of anything else new that she took around the same time. She is pretty sure that reaction was to the biologic therapy. She already had a reaction to Dupixent. Explained to her this point no further biologic therapy should be provided for her. In the meantime she will continue with current respiratory therapy. She does not having significant wheezing at this time. She will continue with the prednisone taper. If once she stops to taper her symptoms start recurrent she will call me so I can send additional prednisone to the pharmacy. In addition to that will go ahead and request an overnight oximetry to check her oxygen while she is sleeping at nighttime on her CPAP. She continues uses CPAP although she does have headaches in the morning. [facility] Medical History (Updated 05/21/24 @ 08:40 by Daniel Schuster MD) Tachycardia Bronchopneumonia Asthma MIKAELA (obstructive sleep apnea) MIKAELA on CPAP Asthma-COPD overlap syndrome Social History Patient Tobacco Use Status: Former Tobacco user Tobacco use type: Cigarette Years Smoked: 4 years Current occupational status: disabled Review of Systems Const Reports daytime sleepiness, Reports difficulty sleeping, Reports fatigue, Denies fever(s), Reports headache(s) and Denies night sweats ENT Denies change in voice, Reports headache(s), Denies lip swelling, Denies mouth pain, Reports nasal congestion, Reports nasal discharge and Denies tongue swelling Card Denies chest pain, Denies dyspnea and Reports dyspnea on exertion Resp Reports chest congestion, Reports cough, Denies dyspnea, Reports dyspnea on exertion and Reports wheezing GI Denies abdominal pain Musc Reports abnormal gait, Reports myalgias, Reports arthralgias, Reports joint swelling and Reports limited range of motion Skin/Breast Reports erythema and Reports rash Neuro Denies Neuro-related abnormal movements, Reports abnormal gait and Reports headache(s) Psych Denies no additional complaints Endo Reports fatigue Shayne/Lymph Denies easy bleeding and Denies lymphadenopathy Aller/Immun Denies lip swelling, Denies tongue swelling and Reports wheezing Physical Exam Vital Signs: Last Vital Signs Pulse 82 05/20/24 10:47 BP 132/70 05/20/24 10:47 Pulse Ox 97 05/20/24 10:47 Oxygen Delivery Method Room Air 05/20/24 10:47 BMI result Body Mass Index 47.5 Const General: no acute distress and alert HEENT General nose exam: Abnormal external nose present and Nasal discharge present Eyes Conjunctivae: conjunctival abnormal bilateral conjunctival injection Pupils: Equal, round and reactive pupils present Neck Neck: Yes normal visual inspection, Yes full ROM and Yes no lymphadenopathy Chest Chest palpation & inspection: normal inspection of the chest Resp Effort & Inspection: prolonged expiratory phase Auscultation: wheezes and diminished lung sounds Cardio Rate: tachycardic Rhythm: regular rhythm Heart sounds: S1 normal heart sound present and S2 normal heart sound present GI Palpation (GI): Soft to palpation and nontender Auscultation: normal bowel sounds General: Yes no CVA tenderness Back/Spine/Pelvis Back: no CVA tenderness Skin General skin exam: rashes and/or lesions noted Neuro Cranial nerves: Yes Equal, round and reactive pupils present Assessment & Plan Assessment & Plan (1) Asthma: Code(s): J45.909 - Unspecified asthma, uncomplicated Category: Medical Qualifiers: Asthma complication type: with acute exacerbation Asthma persistence: persistent Asthma severity: severe Qualified Code(s): J45.51 - Severe persistent asthma with (acute) exacerbation (2) Asthma-COPD overlap syndrome: Code(s): J44.9 - Chronic obstructive pulmonary disease, unspecified Category: Medical Plan: Increase Daliresp 500 mcg Add Budesonide Continue Trelegy Zpack (3) Cough: Code(s): R05.9 - Cough, unspecified Category: Medical Qualifiers: Cough type: unspecified Qualified Code(s): R05.9 - Cough, unspecified (4) Tachycardia: Code(s): R00.0 - Tachycardia, unspecified Category: Medical (5) Allergic reaction: Comment: Likely to Tezspire Code(s): T78.40XA - Allergy, unspecified, initial encounter Category: Medical Qualifiers: Encounter type: initial encounter Qualified Code(s): T78.40XA - Allergy, unspecified, initial encounter Plan stopped Tezspire due to allergic reaction continue Trelegy 100mcg Continue Daliresp 500 mcg daily (allergic to the generic medicine) short-acting beta agonist as needed conitnue PAP therapy Overnight theoximetry on CPAP RA Low Na diet PFTs would benefit from pulmonary rehab when better follow-up in 3-4 months Orders: Orders Overnight Pulse Oximetry Today J44.9 - Chronic obstructive pulmonary disease, unspecified Coding Level of Care Code Est Pt Level 4 (77600) Complex EM visit Add On G2211 Diagnoses Severe persistent asthma with acute exacerbation J45.51 Asthma complication type: with acute exacerbation Asthma persistence: persistent Asthma severity: severe Asthma-COPD overlap syndrome J44.9 Cough, unspecified type R05.9 Cough type: unspecified Tachycardia R00.0 Allergic reaction, initial encounter T78.40XA Encounter type: initial encounter Time Spent (min) 20
[2024-05-20 10:47] VITALS: BP 132/70; PULSE 82; O2SAT 97; BMI 47.5
== END 2024-05-20 11:03 | disposition home or self-care (01) ==
PROVIDERS: PCP Internal Medicine; Visit Provider Hospitalist
DX: J45.51 Severe persistent asthma with (acute) exacerbation (principal); J44.9 Chronic obstructive pulmonary disease, unspecified; R05.9 Cough, unspecified; R00.0 Tachycardia, unspecified; T78.40XA Allergy, unspecified, initial encounter
CPT/HCPCS: 99214; G2211

== ENCOUNTER → 2024-05-20 10:39 | Outpatient (BNVA) | payer OTHER, SELFPAY | PROVIDERS: PCP Internal Medicine; Visit Provider Hospitalist | DX: J45.51 Severe persistent asthma with (acute) exacerbation (principal); J44.9 Chronic obstructive pulmonary disease, unspecified | CPT/HCPCS: 99212 ==

== ENCOUNTER 2024-08-02 13:57 | Outpatient (AMB) | payer OTHER, SELFPAY ==
--- OUTSIDE RECORDS SUMMARY | 2024-08-02 14:02 | XMS_ITS | Data Portability ---
Author Organization [employer] Address [address] [place] [address] Care Team Providers Care Document Control Supervisor Name Role Phone HIM CCA OTHER Assessment Encounter Date Assessment Date Assessment LastModified by Organization Details LastModified Time 05/12/2024 05/12/2024 service called for acute pain found 69 frances with hx asthma received new medication Tezspire (monoclonal ab) for asthma 2d prior today at 2am acute onset 10/10 pain b/l soles of feet unable to bear any weight sharp in nature no palmar pain, rashes no ear pain no throat pain, pain on swallowing no new eye redness no new gum bleeding no new easy bruising no other new rashes no recent hx zoster no new fevers, chills, n/v/d VSS reported exam no lesions oropharynx no rashes palmar, plantar aspect 10/10 b/l plantar tenderness, provoking tears #Pain No obvious mechanism of illness ddx include medication rxn; however >24h since administration currently intolerable pain refer ED for pain control [email or web address] Not available 05/12/2024 18:17:00 Plan of Treatment Reminders Order Date Submit Date Provider Last Modified By Organization Details Last Modified Time Details Appointments None record ed. Lab None record ed. Referral None record ed. Procedures None record ed. Surgeries None record ed. Imaging None record ed. Medication Orders None record ed. Patient TargetsNo targets recorded. Patient InstructionsNo instructions recorded. Reason for Referral None Reported. Medical Equipment None Reported. Medications Name Sig Start Date Stop Date Status Note LastModified by Organization Details LastModified Time losartan 50 mg tablet TAKE 1 TABLET BY MOUTH DAILY active Not Available Not Available Not Available azelastine 0.05 % eye drops APPLY TP BOTH EYES INSTILL 2 DROPS IN EACH EYE DAILY NEEDED active Not Available Not Available No t Available nystatin 100,000 unit/mL oral suspension active Not Available Not Available N ot Available venlafaxine ER 75 mg capsule,exte nded release 24 hr TAKE ONE CAPSULE BY MOUTH EVERY MORNING FOR DEPRESSION AND ANXIETY. TAKE WITH 150MG CAPSULE active Not Available Not Available No t Available doxycycline hyclate 100 mg capsule TAKE 1 CAPSULE BY MOUTH TWICE DAILY FOR 10 DAYS active Not Available Not Available No t Available albuterol sulfate 2.5 mg/3 mL (0.083 %) solution for nebulization active Not Available Not Available Not Available prednisone 20 mg tablet TAKE 2 TABLETS BY MOUTH DAILY FOR 5 DAYS THEN 1 TABLET BY MOUTH DAILY FOR 5 DAYS active Not Available Not Available N ot Available alendronate 70 mg tablet TAKE 1 TABLET BY MOUTH EVERY WEEK active Not Available Not Available No t Available venlafaxine ER 150 mg capsule,exte nded release 24 hr TAKE 1 CAPSULE BY MOUTH EVERY MORNING active Not Available Not Available No t Available Pred Mild 0.12 % eye drops,suspen faina active Not Available Not Available Not Available quetiapine 100 mg tablet TAKE 1 TABLET BY MOUTH AT BEDTIME active Not Available Not Available No t Available levothyroxin e 100 mcg tablet TAKE 1 TABLET BY MOUTH DAILY active Not Available Not Available Not Available clonazepam 2 mg tablet TAKE 1 TABLET BY MOUTH TWICE DAILY active Not Available Not Available No t Available omeprazole 20 mg capsule,carlos yed release TAKE 1 CAPSULE BY MOUTH DAILY active Not Available Not Available Not Available budesonide 0.5 mg/2 mL suspension for nebulization INHALE 1 VIAL VIA NEBULIZER DAILY active Not Available Not Available No t Available furosemide 20 mg tablet TAKE 1 TABLET BY MOUTH DAILY FOR 7 DAYS active Not Available Not Available N ot Available zolpidem 10 mg tablet TAKE 1 TABLET BY MOUTH AT BEDTIME active Not Available Not Available No t Available albuterol sulfate HFA 90 mcg/actuatio n aerosol inhaler INHALE 2 PUFFS BY MOUTH EVERY 6 HOURS NEEDED FOR SHORTNESS OF BREATH OR WHEEZING active Not Available Not Available Not Available fluticasone propionate 50 mcg/actuatio n nasal spray,suspen faina SPRAY 1 SPRAY PER NOSTRIL DAILY active Not Available Not Available No t Available loratadine 10 mg tablet TAKE 1 TABLET BY MOUTH DAILY active Not Available Not Available Not Available amoxicillin 875 mg-potassium clavulanate 125 mg tablet active Not Available Not Available Not Available azithromycin 500 mg tablet TAKE 1 TABLET BY MOUTH DAILY FOR 5 DAYS active Not Available Not Available N ot Available quetiapine 50 mg tablet TAKE 1 TABLET BY MOUTH EVERY MORNING active Not Available Not Available No t Available cholecalcife rol (vitamin D3) 50 mcg (2,000 unit) capsule TAKE 1 CAPSULE BY MOUTH DAILY active Not Available Not Available Not Available Daliresp 500 mcg tablet TAKE 1 TABLET BY MOUTH DAILY active Not Available Not Available Not Available Dupixent 300 mg/2 mL subcutaneous syringe active Not Available Not Available Not Available Trelegy Ellipta 100 mcg-62.5 mcg-25 mcg powder for inhalation INHALE 1 PUFF BY MOUTH DAILY active Not Available Not Available Not Available Trelegy Ellipta 200 mcg-62.5 mcg-25 mcg powder for inhalation INHALE 1 PUFF BY MOUTH DAILY active Not Available Not Available Not Available BinaxNOW COVID-19 Ag Self Test kit TEST DIRECTED TODAY active Not Available Not Available No t Available Vitals Date Recorded Body temperature Respiratory rate Heart rate Oxygen saturation Oxygen saturation in Arterial blood by Pulse oximetry Body weight Systolic blood pressure Diastolic blood pressure Provider Name and Address Organization Details Last Updated DateTime 4 99.1 [degF] 16 /min 110 /min 96 % 96 % 128243. 328 g 142 mm[Hg] 72 mm[Hg] Not Available [facility] - production 4 16:34:01 Social History None recorded. Functional Status None recorded. Mental Status None recorded. Family History Nothing Reported. Medical History No medical history recorded. Gynecological HistoryNo gynecological history recorded. Obstetrics History GPAL:G 0 P 0 0 0 0 Past Encounters Encounter ID Performer Location Encounter Start Date Encounter Closed Date Diagnosis/Indication Diagnosis SNOMED-CT Code Diagnosis ICD10 Code [id number] Dario Shipley MD [facility] [address] [place] [phone] 05/12/2024 16:33:58 05/13/2024 08:03:44 Foot pain 12077253 M79.673 Health Concerns Section Related Observation LastModified by Organization Detai ls LastModified Time None Recorded Concern Status LastModified by Organization Details LastModified Time None Recorded Advance Directives Directive None Recorded Payers Encounter Date Sequence Insurance Name Policy Number Policy Bagley Covered Member ID Bagley Member ID Guarantor Name 05/12/2024 1 [facility] - DOS ON OR AFTER 2022 - DUAL ELIGIBLE - ASSISTED OPTIONS AND ONE CARE (MEDICARE REPLACEMENT/ADV ANTAGE - HMO) Fidelia Boyer [id number] Fidelia Boyer Notes Date Note Type Note Provider Name and Address Organization Details Recorded Time 05/12/2024 text/html [facility] Nurse Triage Notes (Thor Chamorro): Chief Complaints: Pain PMH: COPD/Asthma Allergies: Unknown Comments: [facility] verified the Pt.'s name//address and phone number. Education provided on the response time and the Pt. was advised to monitor reported s/s and seek emergency treatment if needed. Pt reports lower extremity swelling - Increased pain -Unsteady gait - Denies wounds and drainage - Denies fever - Denies chest pain and SOB - S/S started last night - Member is requesting a wellness check. .................. .................. .................. .................. .................. .................. .................. ............... Special Agent Note From Tomas Muller: Pt co severe pain on bottoms of feet and is unable to ambulate and tops of hands . Pt took Tylenol with no relief. Pt denies cp , sob, headache, dizziness, NVD, fever, chills, edema , trauma or falls. Baseline vitals assessed, feet painful upon palpation, pt unable to stand or bear weight, pt sts 10/10 pain. No edema present, no redness or wounds. [facility] contacted and advised pt to go to ER. Pt requires ambulance for transport. 911 called. EMS arrival and pt care transferred to EMS. [place] [facility] Pt signed consent hard copy and uploaded. .................. .................. .................. .................. .................. .................. .................. ............... Disposition: Fulfilled Dario Shipley MD [address] [facility],[address], [place], [phone], JULIUS AKILAH GARCIA 05/12/2024 18:17:11 OBGyn Episode No OBEpisode recorded.
--- OUTSIDE RECORDS SUMMARY | 2024-08-02 14:02 | XMS_ITS | Continuity of Care Document ---
Author Organization [employer] Address [address] [place] [address] Care Team Providers Care Sample Box Maker Name Role Phone HIM CCA OTHER Assessment [...] /min 110 /min 96 % 96 % [id number]. 328 g 142 mm[Hg] 72 mm[Hg] Not Available [email or web address] - production 4 16:34:01 Social History None recorded. Functional Status None recorded. Mental Status None recorded. Family History Nothing Reported. Medical History No medical history recorded. Gynecological HistoryNo gynecological history recorded. Obstetrics History GPAL:G 0 P 0 0 0 0 Past Encounters Encounter ID Performer Location Encounter Start Date Encounter Closed Date Diagnosis/Indication Diagnosis SNOMED-CT Code Diagnosis ICD10 Code [id number] Dario Shipley MD [facility] [address] [place] [id number] 05/12/2024 16:33:58 05/13/2024 08:03:44 Foot pain 43162151 M79.673 Health Concerns Section Related Observation LastModified by Organization Detai ls LastModified Time None Recorded Concern Status LastModified by Organization Details LastModified Time None Recorded Payers Encounter Date Sequence Insurance Name Policy Number Policy Bagley Covered Member ID Bagley Member ID Guarantor Name 05/12/2024 1 [facility] - DOS ON OR AFTER 2022 - DUAL ELIGIBLE - NURSING HOME OPTIONS AND ONE CARE (MEDICARE REPLACEMENT/ADV ANTAGE - HMO) Fidelia Boyer [id number] Fidelia Boyer Notes Date Note Type Note Provider Name and Address Organization Details Recorded Time 05/12/2024 text/html [facility] Nurse Triage Notes (Thor Chamorro): Chief Complaints: Pain PMH: COPD/Asthma Allergies: Unknown Comments: [employer] verified the Pt.'s name//address and phone number. [...] .................. .................. .................. .................. .................. .................. ............... Twister In Note From Tomas Muller: Pt co severe [...] No edema present, no redness or wounds. [facility] contacted and advised pt to go to ER. Pt requires ambulance for transport. 911 called. EMS arrival and pt care transferred to EMS. [place] [facility] Pt signed consent hard copy and uploaded. .................. .................. .................. .................. .................. .................. .................. ............... Disposition: Fulfilled Dario Shipley MD [address] [place] [address],[address], [place], [address], JULIUS - AKILAH GARCIA 05/12/2024 18:17:11 OBGyn Episode No OBEpisode recorded.
[2024-08-02 14:10] VITALS: BP 108/60; PULSE 89; O2SAT 97
--- NOTE | 2024-08-02 14:10 | A.OFFVIS_ITS ---
Vital Signs 08/02/24 14:10 BP 108/60 Blood Pressure Location Lt brachial Position Sitting Pulse 89 Pulse Source Pulse Oximeter Pulse Oximetry (%) 97 Oxygen Delivery Method Room Air Comment unable to stand for weight Intake Visit Reasons: COPD Allergies seafood Allergy (Severe, Verified 08/02/24 14:15) Swelling and Hives ibuprofen [From Motrin] Allergy (Mild, Verified 08/02/24 14:15) Throat Closed montelukast Allergy (Mild, Verified 08/02/24 14:15) Rash tezepelumab-ekko [From Tezspire] Adverse Reaction (Severe, Verified 08/02/24 14:15) Swelling benzodiazepine Allergy (Mild, Uncoded 08/02/24 14:15) Rash Medication List - Last Reconciled 08/02/24 by Yamile Garza LPN acetaminophen 1,000 mg PO TID PRN albuterol sulfate 2.5 mg (3 mL) inhalation Q4H PRN 30 days albuterol sulfate 90 mcg/actuation 2 puffs inhalation Q6H PRN 30 days alendronate (Fosamax) 70 mg PO QWEEK budesonide 0.5 mg (2 mL) inhalation DAILY cetirizine 10 mg PO DAILY cholecalciferol (vitamin D3) (Vitamin D3) 50 mcg PO DAILY clonazepam 2 mg PO BID PRN Daliresp (roflumilast) 500 mcg PO DAILY 30 days NS diphenhydramine HCl (Benadryl Allergy) 25 mg PO Q8H PRN 14 days epinephrine IM flu vacc [id number](65yr up)-PF mL IM fluticasone propionate 50 mcg/actuation 0 mcg intranasal fluticasone propionate 110 mcg/actuation 1 puff PO DAILY cefksowslqd-rtfrmozwi-tscahbyt 100-62.5-25 mcg (Trelegy Ellipta) 1 inh inhalation DAILY 30 days tsyzdqxmutf-bhoisreas-iswkajvh 200-62.5-25 mcg (Trelegy Ellipta) 1 ea PO DAILY furosemide (Lasix) 20 mg PO DAILY 7 days ipratropium-albuterol 0.5 mg-3 mg(2.5 mg base)/3 mL mL inhalation Q6H levothyroxine 100 mcg PO DAILY loratadine 10 mg PO DAILY 30 days losartan 50 mg PO DAILY nebulizers As directed nebulizers As directed nystatin PO omeprazole 20 mg PO DAILY oxycodone 5 mg PO Q8H PRN prednisolone acetate 0.12% 1 drp ophthalmic (eye) QID 4 days prednisone PO daily; Take 2 tabs daily x 5 days, then 1 tablet daily x 5 days 10 days quetiapine 50 mg PO QAM quetiapine 100 mg PO BEDTIME sertraline 100 mg PO BEDTIME venlafaxine ER 75 mg PO QAM zolpidem 10 mg PO BEDTIME HPI Comments Details: 69-year-old lady, former under 10 pack-year smoker, quit 30 years prior with underlying history of obesity, MIKAELA on CPAP, asthma on Xolair and Trelegy and possible diagnosis of COPD who is transferring her care from [facility]. Patient states that her respiratory symptoms have been well controlled on the current regimen of trilogy, albuterol MDI, and Xolair. She has had CPAP setup with [employer], however she has not been receiving her supplies. She denies any recent asthma exacerbations. She is having difficulties with her CPAP are. Her CPAP is more than 5 years old and she did get initially from [employer]. The CPAP therapy has been affecting beneficial. However, recently she started developing mold inside her machine. She is very reluctant to use it specially because her comorbidities and risks of worsening respiratory status due to the mold exposure. I did call [employer], her [employer] company to see if any arrangements can be made. She has had multiple sleep studies the last when she did get was that [facility]. Did did recommend CPAP of 12 cm. Therefore, I will put her on APAP with a pressure of 10 to 14. 08/22/2022 the patient is here for sick visit. She has continued to have worsening respiratory symptoms with significant wheezing and shortness of breath. Moderate severity. She has been using her nebulizer treatment multiple times a day. She also continues on the Trelegy with good response. Unfortunately, she had a reaction to the generic Daliresp. she had been responding very well to the brand Daliresp and she had significant weight loss and also good control of her asthma. Unfortunately when she stop the brand Daliresp her symptoms started worsening again. She also been on Xolair it does not seem like his controlling her asthma at this time. The patient is going to require additional prednisone at this time. I do believe that considering a different biologic agents such as Dupixent will be a better option for her. Initially I thought that we will provide her the Xolair so therefore I started the process. We have to reach out to the patient to see if this is something that she would want to do. Therefore will maximize her respiratory therapy and see about switching her biologic regimen. In the meantime the patient can also start course of prednisone. 11/21/2022 the patient is here for a pulmonary follow-up visit. Overall she is feeling a lot better. She was recently changed over to Dupixent. Seems to be working better for her. In addition to that she continues on the Trelegy 200. She finally got the brand Daliresp and she is back to taking it. The 1st very happy that her respiratory status is getting better. It may be the case that when she continues on the Dupixent if she continues to do well we can decrease her Trelegy to 100 mcg instead. The patient is sleeping relatively well. Sometimes she has a hard time falling sick although she does have sleep aid. She denies any significant daytime drowsiness he is if she is able to sleep in effective night. Therefore will continue with positional therapy at this time. 02/03/2023 the patient is here for a pulmonary follow-up visit. The patient is doing well. She recently came back from a trip to [place]. It was very hot therapy. She had to use her respiratory therapy more often. Although she did not any prednisone. She has been back on Daliresp which is helping. She is also taking the Dupixent every 2 weeks also has been helpful. She tolerated the decrease in the Trelegy to the 100 mcg dose. However she does have some daytime drowsiness. Her Brickeys score is elevated 12/24. She does have a history sleep apnea in the past. Will go ahead and repeat her home sleep study at this time. I do believe that if she needs to be on CPAP we need to help her tolerate the therapy. Will follow up with the patient after her sleep study. 05/05/2023 the patient is here for a pulmonary follow-up visit. The patient continues to have significant daytime drowsiness. Her Brickeys score is elevated 11/24. We did review her sleep study. She does have significant sleep apnea which is moderate to severe. She has significant hypoxia and significant tachycardia. We talked about the importance of CPAP. We talked about different alternatives which are not optimal for her. Therefore, the best option for her is to use CPAP. The patient is open to restarting. She knows that she needs use it 4 hours a night. will go ahead and order through a local DME company the patient will be started on therapy as soon as possible. In the meantime her asthma seems to be good control with the Dupixent. She is also using the Trelegy inhaler. She still having some wheezing but she wants to decrease the Trelegy to the 100 mcg dose which I believe is reasonable. 05/19/2023 the patient is here for a pulmonary follow-up visit. The patient continues to have significant daytime drowsiness. Her Brickeys score continues to be elevated 07/11. The patient does have moderate to severe sleep apnea with significant hypoxia significant tachycardia during her apneic episodes. She needs to start APAP LETY. The patient had tried CPAP in the past but was not able to tolerated. Now she understands with increased cardiovascular risk factors that the CPAP therapy is very important. She is eager to get back to using it. Part the major issue was the mask fitting. We did talk about different masks chest the F30 I mask which may be a good fit for her. Her asthma continues to be in good control with Dupixent. She continues on the Trelegy and we had decrease the dose to the 100 mcg dose which she seems to be tolerating since the last visit. We will request a APAP machine from a DME company in order for her to be started on therapy as soon as possible. 06/19/2023 the patient is here for sick visit. Apparently she was in her usual state health until recently when she went to [place] with her family. While she was there she did a lot of walking. When she came back she started developing worsening chest tightness and cough. Moderate severity. Feels congested but can not expectorate. Denies any fevers or chills. She did get toe state for COVID-19 which was negative. The patient continues use her respiratory therapy her nebulizer although she has not seen any significant improvement. We did bring urine. She did get vaccinated for RSV which is reassuring. Still I did a flu/ RSV/ COVID swab. It all turned out negative. The patient does have increased chest tightness and wheezing with prolonged expiratory phase. She will be treated for an asthma exacerbation. If the patient is no better she will call back the office for further evaluation. 11/03/2023 the patient is here for a hospital follow-up visit. She was in usual state health until back in September when she is developed worsening respiratory symptoms. Positive sick contacts. Significant chest congestion and cough. She could not tolerate his symptoms and longer and she did go to the [facility]. The patient was evaluated by a drink care. She had a chest x-ray which I personally reviewed demonstrating a hazy opacity in the right lower lobe area and also to some degree on the left. I did compare to her previous chest x-ray which she did not have those changes. Therefore she likely had a component of bronchopneumonia exacerbating her asthma. The patient did have antibiotics Augmentin which help. She also continue with respiratory therapy and she finish her course of prednisone. Now she is back to her baseline. The patient has been feeling better. She is tolerating respiratory therapy.. Will plan to repeat a chest x-ray to make sure that she has resolution of the airspace disease. The patient should return in 3-4 months or sooner if she develops any worsening symptoms. 02/23/2024 the patient is here for a pulmonary follow-up visit. She still complains of significant dyspnea on exertion. She did have a recent Holter monitor but she has not gotten the results. She is wondering if she needs oxygen. During the office visit we did taken for brief walking oximetry. The patient used use a cane and also has a wheelchair. Very limited. Even with very limited activity she was very short of breath during our brief ambulation while she was using a cane. Dyspnea score was 7/10. Heart rate went up to about 130 beats per minute which was regular. And her pulse ox 95%. Explained to her that her work of breathing is mainly due to the elevated heart rate and she does have enough pulmonary reserve to maintain her pulse ox reasonable. Will have her undergo blood work to make sure she does not have any significant anemia or look for heart failure. She does have significant lower extremity edema likely contributing to her symptoms. I do believe that a brief diuretics will help her with her cardiac function. The patient also has having significant shortness breath while sleeping. Will go ahead and request an overnight oximetry at this time. 05/20/2024 the patient is here for a hospital follow-up visit. Apparently she started the has few days later she started developing significant rash and also joint pains. To the point that she could not even ambulate. She was taken to [facility] where she was briefly admitted to the hospital. She was given steroids. She can not think of anything else new that she took around the same time. She is pretty sure that reaction was to the biologic therapy. She already had a reaction to Dupixent. Explained to her this point no further biologic therapy should be provided for her. In the meantime she will continue with current respiratory therapy. She does not having significant wheezing at this time. She will continue with the prednisone taper. If once she stops to taper her symptoms start recurrent she will call me so I can send additional prednisone to the pharmacy. In addition to that will go ahead and request an overnight oximetry to check her oxygen while she is sleeping at nighttime on her CPAP. She continues uses CPAP although she does have headaches in the morning. 08/02/2024 The patient is here for a pulmonary follow up visit. her breathing is better on the current therapy. She does have significant daytime drosiness with EPWORTH 11/24. She did have a sleep study with severe MIKAELA and hypoxia. We will request a in lab titration study at this time. She continue with her respiratory therapy. She does have difficulty walking and dyspnea and does have a scooter for assistance. Holding off on Biologics at this time. [facility] Medical History (Updated 08/02/24 @ 23:05 by Daniel Schuster MD) Tachycardia Bronchopneumonia Asthma MIKAELA (obstructive sleep apnea) MIKAELA on CPAP Asthma-COPD overlap syndrome Social History Patient Tobacco Use Status: Former Tobacco user Tobacco use type: Cigarette Years Smoked: 4 years Current occupational status: disabled Review of Systems Const Reports daytime sleepiness, Reports difficulty sleeping, Reports fatigue, Denies fever(s), Reports headache(s) and Denies night sweats ENT Denies change in voice, Reports headache(s), Denies lip swelling, Denies mouth pain, Reports nasal congestion, Reports nasal discharge and Denies tongue swelling Card Denies chest pain, Denies dyspnea and Reports dyspnea on exertion Resp Reports chest congestion, Reports cough, Denies dyspnea, Reports dyspnea on exertion and Reports wheezing GI Denies abdominal pain Musc Reports abnormal gait, Reports myalgias, Reports arthralgias, Reports joint swelling and Reports limited range of motion Skin/Breast Reports erythema and Reports rash Neuro Denies Neuro-related abnormal movements, Reports abnormal gait and Reports headache(s) Psych Denies no additional complaints Endo Reports fatigue Shayne/Lymph Denies easy bleeding and Denies lymphadenopathy Aller/Immun Denies lip swelling, Denies tongue swelling and Reports wheezing Physical Exam Vital Signs: Last Vital Signs Pulse 89 08/02/24 14:10 BP 108/60 08/02/24 14:10 Pulse Ox 97 08/02/24 14:10 Oxygen Delivery Method Room Air 08/02/24 14:10 Const General: no acute distress and alert HEENT General nose exam: Abnormal external nose present and Nasal discharge present Eyes Conjunctivae: conjunctival abnormal bilateral conjunctival injection Pupils: Equal, round and reactive pupils present Neck Neck: Yes normal visual inspection, Yes full ROM and Yes no lymphadenopathy Chest Chest palpation & inspection: normal inspection of the chest Resp Effort & Inspection: prolonged expiratory phase Auscultation: wheezes and diminished lung sounds Cardio Rate: tachycardic Rhythm: regular rhythm Heart sounds: S1 normal heart sound present and S2 normal heart sound present GI Palpation (GI): Soft to palpation and nontender Auscultation: normal bowel sounds General: Yes no CVA tenderness Back/Spine/Pelvis Back: no CVA tenderness Skin General skin exam: rashes and/or lesions noted Neuro Cranial nerves: Yes Equal, round and reactive pupils present Assessment & Plan Assessment & Plan (1) Asthma: Code(s): J45.909 - Unspecified asthma, uncomplicated Category: Medical Qualifiers: Asthma complication type: uncomplicated Asthma persistence: persistent Asthma severity: severe Qualified Code(s): J45.50 - Severe persistent asthma, uncomplicated (2) Asthma-COPD overlap syndrome: Code(s): J44.9 - Chronic obstructive pulmonary disease, unspecified Category: Medical Plan: Increase Daliresp 500 mcg Add Budesonide Continue Trelegy Zpack (3) Cough: Code(s): R05.9 - Cough, unspecified Category: Medical Qualifiers: Cough type: unspecified Qualified Code(s): R05.9 - Cough, unspecified (4) Tachycardia: Code(s): R00.0 - Tachycardia, unspecified Category: Medical (5) Allergic reaction: Comment: Likely to Tezspire Code(s): T78.40XA - Allergy, unspecified, initial encounter Category: Medical Qualifiers: Encounter type: initial encounter Qualified Code(s): T78.40XA - Allergy, unspecified, initial encounter Plan continue Trelegy 100mcg Continue Daliresp 500 mcg daily (allergic to the generic medicine) short-acting beta agonist as needed conitnue PAP therapy CPAP/BIPAP titration sleep study Low Na diet PFTs would benefit from pulmonary rehab when better follow-up in 3-4 months Orders: Orders RT PSG in-lab sleep titration Today G47.33 - Obstructive sleep apnea (adult) (pediatric) Coding Level of Care Code Est Pt Level 4 (52461) Complex EM visit Add On G2211 Diagnoses Severe persistent asthma without complication J45.50 Asthma complication type: uncomplicated Asthma persistence: persistent Asthma severity: severe Asthma-COPD overlap syndrome J44.9 Cough, unspecified type R05.9 Cough type: unspecified Tachycardia R00.0 Allergic reaction, initial encounter T78.40XA Encounter type: initial encounter Time Spent (min) 17
== END 2024-08-02 14:41 | disposition home or self-care (01) ==
PROVIDERS: PCP Internal Medicine; Visit Provider Hospitalist
DX: J45.50 Severe persistent asthma, uncomplicated (principal); J44.9 Chronic obstructive pulmonary disease, unspecified; R05.9 Cough, unspecified; R00.0 Tachycardia, unspecified; T78.40XA Allergy, unspecified, initial encounter
CPT/HCPCS: 99214; G2211

== ENCOUNTER → 2024-08-02 13:57 | Outpatient (BNVA) | payer OTHER, SELFPAY | PROVIDERS: PCP Internal Medicine; Visit Provider Hospitalist | DX: J44.9 Chronic obstructive pulmonary disease, unspecified (principal); J45.50 Severe persistent asthma, uncomplicated; G47.33 Obstructive sleep apnea (adult) (pediatric); R09.02 Hypoxemia; T78.40XA Allergy, unspecified, initial encounter; R00.0 Tachycardia, unspecified; X58.XXXA Exposure to other specified factors, initial encounter; Y93.9 Activity, unspecified; Y92.9 Unspecified place or not applicable; Y99.9 Unspecified external cause status; Z87.891 Personal history of nicotine dependence; Z99.89 Dependence on other enabling machines and devices; Z79.899 Other long term (current) drug therapy | CPT/HCPCS: 99212 ==

== ENCOUNTER 2024-11-01 14:37 | Outpatient (AMB) | payer OTHER, SELFPAY ==
[2024-11-01 14:56] VITALS: BP 124/86; PULSE 79; O2SAT 94; BMI 48.0
--- NOTE | 2024-11-01 14:56 | A.OFFVIS_ITS ---
Vital Signs 11/01/24 14:56 Height 5 ft 2 in Weight 262 lb 5.601 oz BMI 48.0 BP 124/86 Blood Pressure Location Lt brachial Position Sitting Pulse 79 Pulse Source Pulse Oximeter Pulse Oximetry (%) 94 Oxygen Delivery Method Room Air Intake Visit Reasons: COPD Allergies seafood Allergy (Severe, Verified 08/02/24 14:15) Swelling and Hives ibuprofen [From Motrin] Allergy (Mild, Verified 08/02/24 14:15) Throat Closed montelukast Allergy (Mild, Verified 08/02/24 14:15) Rash tezepelumab-ekko [From Tezspire] Adverse Reaction (Severe, Verified 08/02/24 14:15) Swelling benzodiazepine Allergy (Mild, Uncoded 08/02/24 14:15) Rash HPI Comments Details: 69-year-old lady, former under 10 pack-year smoker, quit 30 years prior with underlying history of obesity, MIKAELA on CPAP, asthma on Xolair and Trelegy and possible diagnosis of COPD who is transferring her care from [facility]. Patient states that her respiratory symptoms have been well controlled on the current regimen of trilogy, albuterol MDI, and Xolair. She has had CPAP setup with [employer], however she has not been receiving her supplies. She denies any recent asthma exacerbations. She is having difficulties with her CPAP are. Her CPAP is more than 5 years old and she did get initially from [employer]. The CPAP therapy has been affecting beneficial. However, recently she started developing mold inside her machine. She is very reluctant to use it specially because her comorbidities and risks of worsening respiratory status due to the mold exposure. I did call [employer], her [employer] company to see if any arrangements can be made. She has had multiple sleep studies the last when she did get was that [facility]. Did did recommend CPAP of 12 cm. Therefore, I will put her on APAP with a pressure of 10 to 14. 08/22/2022 the patient is here for sick visit. She has continued to have worsening respiratory symptoms with significant wheezing and shortness of breath. Moderate severity. She has been using her nebulizer treatment multiple times a day. She also continues on the Trelegy with good response. Unfortunately, she had a reaction to the generic Daliresp. she had been responding very well to the brand Daliresp and she had significant weight loss and also good control of her asthma. Unfortunately when she stop the brand Daliresp her symptoms started worsening again. She also been on Xolair it does not seem like his controlling her asthma at this time. The patient is going to require additional prednisone at this time. I do believe that considering a different biologic agents such as Dupixent will be a better option for her. Initially I thought that we will provide her the Xolair so therefore I started the process. We have to reach out to the patient to see if this is something that she would want to do. Therefore will maximize her respiratory therapy and see about switching her biologic regimen. In the meantime the patient can also start course of prednisone. 11/21/2022 the patient is here for a pulmonary follow-up visit. Overall she is feeling a lot better. She was recently changed over to Dupixent. Seems to be working better for her. In addition to that she continues on the Trelegy 200. She finally got the brand Daliresp and she is back to taking it. The 1st very happy that her respiratory status is getting better. It may be the case that when she continues on the Dupixent if she continues to do well we can decrease her Trelegy to 100 mcg instead. The patient is sleeping relatively well. Sometimes she has a hard time falling sick although she does have sleep aid. She denies any significant daytime drowsiness he is if she is able to sleep in effective night. Therefore will continue with positional therapy at this time. 02/03/2023 the patient is here for a pulmonary follow-up visit. The patient is doing well. She recently came back from a trip to [place]. It was very hot therapy. She had to use her respiratory therapy more often. Although she did not any prednisone. She has been back on Daliresp which is helping. She is also taking the Dupixent every 2 weeks also has been helpful. She tolerated the decrease in the Trelegy to the 100 mcg dose. However she does have some daytime drowsiness. Her Crane score is elevated 08/10. She does have a history sleep apnea in the past. Will go ahead and repeat her home sleep study at this time. I do believe that if she needs to be on CPAP we need to help her tolerate the therapy. Will follow up with the patient after her sleep study. 05/05/2023 the patient is here for a pulmonary follow-up visit. The patient continues to have significant daytime drowsiness. Her Crane score is elevated 11/24. We did review her sleep study. She does have significant sleep apnea which is moderate to severe. She has significant hypoxia and significant tachycardia. We talked about the importance of CPAP. We talked about different alternatives which are not optimal for her. Therefore, the best option for her is to use CPAP. The patient is open to restarting. She knows that she needs use it 4 hours a night. will go ahead and order through a local DME company the patient will be started on therapy as soon as possible. In the meantime her asthma seems to be good control with the Dupixent. She is also using the Trelegy inhaler. She still having some wheezing but she wants to decrease the Trelegy to the 100 mcg dose which I believe is reasonable. 05/19/2023 the patient is here for a pulmonary follow-up visit. The patient continues to have significant daytime drowsiness. Her Crane score continues to be elevated 11/24. The patient does have moderate to severe sleep apnea with significant hypoxia significant tachycardia during her apneic episodes. She needs to start APAP LETY. The patient had tried CPAP in the past but was not able to tolerated. Now she understands with increased cardiovascular risk factors that the CPAP therapy is very important. She is eager to get back to using it. Part the major issue was the mask fitting. We did talk about different masks chest the F30 I mask which may be a good fit for her. Her asthma continues to be in good control with Dupixent. She continues on the Trelegy and we had decrease the dose to the 100 mcg dose which she seems to be tolerating since the last visit. We will request a APAP machine from a DME company in order for her to be started on therapy as soon as possible. 06/19/2023 the patient is here for sick visit. Apparently she was in her usual state health until recently when she went to [place] with her family. While she was there she did a lot of walking. When she came back she started developing worsening chest tightness and cough. Moderate severity. Feels congested but can not expectorate. Denies any fevers or chills. She did get toe state for COVID-19 which was negative. The patient continues use her respiratory therapy her nebulizer although she has not seen any significant improvement. We did bring urine. She did get vaccinated for RSV which is reassuring. Still I did a flu/ RSV/ COVID swab. It all turned out negative. The patient does have increased chest tightness and wheezing with prolonged expiratory phase. She will be treated for an asthma exacerbation. If the patient is no better she will call back the office for further evaluation. 11/03/2023 the patient is here for a hospital follow-up visit. She was in usual state health until back in September when she is developed worsening respiratory symptoms. Positive sick contacts. Significant chest congestion and cough. She could not tolerate his symptoms and longer and she did go to the [facility]. The patient was evaluated by a drink care. She had a chest x-ray which I personally reviewed demonstrating a hazy opacity in the right lower lobe area and also to some degree on the left. I did compare to her previous chest x-ray which she did not have those changes. Therefore she likely had a component of bronchopneumonia exacerbating her asthma. The patient did have antibiotics Augmentin which help. She also continue with respiratory therapy and she finish her course of prednisone. Now she is back to her baseline. The patient has been feeling better. She is tolerating respiratory therapy.. Will plan to repeat a chest x-ray to make sure that she has resolution of the airspace disease. The patient should return in 3-4 months or sooner if she develops any worsening symptoms. 02/23/2024 the patient is here for a pulmonary follow-up visit. She still complains of significant dyspnea on exertion. She did have a recent Holter monitor but she has not gotten the results. She is wondering if she needs oxygen. During the office visit we did taken for brief walking oximetry. The patient used use a cane and also has a wheelchair. Very limited. Even with very limited activity she was very short of breath during our brief ambulation while she was using a cane. Dyspnea score was 7/10. Heart rate went up to about 130 beats per minute which was regular. And her pulse ox 95%. Explained to her that her work of breathing is mainly due to the elevated heart rate and she does have enough pulmonary reserve to maintain her pulse ox reasonable. Will have her undergo blood work to make sure she does not have any significant anemia or look for heart failure. She does have significant lower extremity edema likely contributing to her symptoms. I do believe that a brief diuretics will help her with her cardiac function. The patient also has having significant shortness breath while sleeping. Will go ahead and request an overnight oximetry at this time. 05/20/2024 the patient is here for a hospital follow-up visit. Apparently she started the has few days later she started developing significant rash and also joint pains. To the point that she could not even ambulate. She was taken to [facility] where she was briefly admitted to the hospital. She was given steroids. She can not think of anything else new that she took around the same time. She is pretty sure that reaction was to the biologic therapy. She already had a reaction to Dupixent. Explained to her this point no further biologic therapy should be provided for her. In the meantime she will continue with current respiratory therapy. She does not having significant wheezing at this time. She will continue with the prednisone taper. If once she stops to taper her symptoms start recurrent she will call me so I can send additional prednisone to the pharmacy. In addition to that will go ahead and request an overnight oximetry to check her oxygen while she is sleeping at nighttime on her CPAP. She continues uses CPAP although she does have headaches in the morning. 08/02/2024 The patient is here for a pulmonary follow up visit. her breathing is better on the current therapy. She does have significant daytime drosiness with EPWORTH 11/24. She did have a sleep study with severe MIKAELA and hypoxia. We will request a in lab titration study at this time. She continue with her respiratory therapy. She does have difficulty walking and dyspnea and does have a scooter for assistance. Holding off on Biologics at this time. 11/01/2024 the patient is here for a pulmonary follow-up visit. Overall the patient has been doing well from an asthma standpoint. She continues her respiratory medicines with good effect. She is still having a reaction to where she had her biologic injection. She is having an area looked at that is still painful in the arm. Hopefully settle down with time. In the meantime she continues to have significant daytime drowsiness. She did undergo a split study demonstrating severe sleep apnea. She was able to be titrated on APAP and she did well. She does have an APAP but is old in his on working effectively. Also has mold. Therefore will request a replacement APAP at this time and will continue her with the N30i air touch mask the feeds were well. If she has difficulties tolerating the APAP we can always consider BiPAP as per the recommendations of the sleep study. She will continue with the current respiratory therapy. Otherwise if the patient has any issues she will call for an earlier assessment. [facility] Medical History (Updated 08/02/24 @ 23:05 by Daniel Schuster MD) Tachycardia Bronchopneumonia Asthma MIKAELA (obstructive sleep apnea) MIKAELA on CPAP Asthma-COPD overlap syndrome Social History Patient Tobacco Use Status: Former Tobacco user Tobacco use type: Cigarette Years Smoked: 4 years Current occupational status: disabled Review of Systems Const Reports daytime sleepiness, Reports difficulty sleeping, Reports fatigue, Denies fever(s), Reports headache(s) and Denies night sweats ENT Denies change in voice, Reports headache(s), Denies lip swelling, Denies mouth pain, Reports nasal congestion, Reports nasal discharge and Denies tongue swelling Card Denies chest pain, Denies dyspnea and Reports dyspnea on exertion Resp Reports chest congestion, Reports cough, Denies dyspnea, Reports dyspnea on exertion and Reports wheezing GI Denies abdominal pain Musc Reports abnormal gait, Reports myalgias, Reports arthralgias, Reports joint swelling and Reports limited range of motion Skin/Breast Reports erythema and Reports rash Neuro Denies Neuro-related abnormal movements, Reports abnormal gait and Reports headache(s) Psych Denies no additional complaints Endo Reports fatigue Shayne/Lymph Denies easy bleeding and Denies lymphadenopathy Aller/Immun Denies lip swelling, Denies tongue swelling and Reports wheezing Physical Exam Vital Signs: Last Vital Signs Pulse 79 11/01/24 14:56 BP 124/86 11/01/24 14:56 Pulse Ox 94 11/01/24 14:56 Oxygen Delivery Method Room Air 11/01/24 14:56 BMI result Body Mass Index 48.0 Const General: no acute distress and alert HEENT General nose exam: Abnormal external nose present and Nasal discharge present Eyes Conjunctivae: conjunctival abnormal bilateral conjunctival injection Pupils: Equal, round and reactive pupils present Neck Neck: Yes normal visual inspection, Yes full ROM and Yes no lymphadenopathy Chest Chest palpation & inspection: normal inspection of the chest Resp Effort & Inspection: prolonged expiratory phase Auscultation: no wheezes and diminished lung sounds Cardio Rate: tachycardic Rhythm: regular rhythm Heart sounds: S1 normal heart sound present and S2 normal heart sound present GI Palpation (GI): Soft to palpation and nontender Auscultation: normal bowel sounds General: Yes no CVA tenderness Back/Spine/Pelvis Back: no CVA tenderness Skin General skin exam: rashes and/or lesions noted Neuro Cranial nerves: Yes Equal, round and reactive pupils present Assessment & Plan Assessment & Plan (1) Asthma: Code(s): J45.909 - Unspecified asthma, uncomplicated Category: Medical Qualifiers: Asthma complication type: uncomplicated Asthma persistence: persistent Asthma severity: severe Qualified Code(s): J45.50 - Severe persistent asthma, uncomplicated (2) Asthma-COPD overlap syndrome: Code(s): J44.9 - Chronic obstructive pulmonary disease, unspecified Category: Medical Plan: Increase Daliresp 500 mcg Add Budesonide Continue Trelegy Zpack (3) Cough: Code(s): R05.9 - Cough, unspecified Category: Medical Qualifiers: Cough type: unspecified Qualified Code(s): R05.9 - Cough, unspecified (4) Tachycardia: Code(s): R00.0 - Tachycardia, unspecified Category: Medical (5) Allergic reaction: Comment: Likely to Tezspire Code(s): T78.40XA - Allergy, unspecified, initial encounter Category: Medical Qualifiers: Encounter type: initial encounter Qualified Code(s): T78.40XA - Allergy, unspecified, initial encounter Plan continue Trelegy 100mcg Continue Daliresp 500 mcg daily (allergic to the generic medicine) short-acting beta agonist as needed conitnue PAP therapy, needs a replacement APAP based on her older machine that is no longer working properly at this time. Split study completed at [facility] and still has severe MIKAELA and APAP is sufficient. Although, if she has a difficult time tolerating APAP we could try BIPAP Low Na diet would benefit from pulmonary rehab when better follow-up in 4 months Coding Level of Care Code Est Pt Level 4 (50857) Complex EM visit Add On G2211 Diagnoses Severe persistent asthma without complication J45.50 Asthma complication type: uncomplicated Asthma persistence: persistent Asthma severity: severe Asthma-COPD overlap syndrome J44.9 Cough, unspecified type R05.9 Cough type: unspecified Tachycardia R00.0 Allergic reaction, initial encounter T78.40XA Encounter type: initial encounter Time Spent (min) 17
--- OUTSIDE RECORDS SUMMARY | 2024-11-01 17:15 | XMS_ITS | Data Portability ---
Author Organization [employer] [employer] Address [address] [place] [id number] Care Team Providers Care Construction Coordinator Name Role Phone HIM CCA OTHER Assessment [...] /min 110 /min 96 % 96 % 994706. 328 g 142 mm[Hg] 72 mm[Hg] Not [...] Diagnosis/Indication Diagnosis SNOMED-CT Code Diagnosis ICD10 Code Diagnosis Note [id number] Dario Shipley MD Main - [facility] [address] [place] [phone] 05/12/2024 16:33:58 05/13/2024 08:03:44 Foot pain [id number] M79.673 Health Concerns Section Related Observation LastModified by Organization Detai ls LastModified Time None Recorded Concern Status LastModified by Organization Details LastModified Time None Recorded Advance Directives Directive None Recorded Payers Encounter Date Sequence Insurance Name Policy Number Policy Bagley Covered Member ID Bagley Member ID Guarantor Name 05/12/2024 1 [facility] - DOS ON OR AFTER 2022 - DUAL ELIGIBLE - LONG-TERM OPTIONS AND ONE CARE (MEDICARE REPLACEMENT/ADV ANTAGE - HMO) Fidelia Boyer [id number] Fidelia L Merlin Notes Date Note Type Note Provider Name and Address Organization Details Recorded Time 05/12/2024 text/html CRC Nurse Triage Notes (Thor Chamorro): Chief Complaints: Pain PMH: COPD/Asthma Allergies: Unknown Comments: [employer] Worker verified the Pt.'s name//address and phone number. [...] .................. .................. .................. .................. .................. .................. ............... Store Manager Note From Tomas Muller: Pt co severe [...] No edema present, no redness or wounds. [facility] contacted and advised pt to go to ER. Pt requires ambulance for transport. 911 called. EMS arrival and pt care transferred to EMS. [facility] transported [place] [facility]. Pt signed consent hard copy and uploaded. .................. .................. .................. .................. .................. .................. .................. ............... Disposition: Fulfilled Dario Shipley MD [address] [place] [address],[address], [place], [phone], JULIUS AKILAH GARCIA 05/12/2024 18:17:11 OBGyn Episode No OBEpisode recorded.
== END 2024-11-01 15:32 | disposition home or self-care (01) ==
LOC: HO.HPS 14:38
PROVIDERS: PCP Internal Medicine; Visit Provider Hospitalist
DX: J45.50 Severe persistent asthma, uncomplicated (principal); J44.9 Chronic obstructive pulmonary disease, unspecified; R05.9 Cough, unspecified; R00.0 Tachycardia, unspecified; T78.40XA Allergy, unspecified, initial encounter
CPT/HCPCS: 99214; G2211

== ENCOUNTER → 2024-11-01 14:37 | Outpatient (BNVA) | payer OTHER, SELFPAY | PROVIDERS: PCP Internal Medicine; Visit Provider Hospitalist | DX: J45.50 Severe persistent asthma, uncomplicated (principal); R05.9 Cough, unspecified; J44.9 Chronic obstructive pulmonary disease, unspecified; R00.0 Tachycardia, unspecified; T78.40XD Allergy, unspecified, subsequent encounter | CPT/HCPCS: 99212 ==

== ENCOUNTER 2025-05-05 13:34 | Outpatient (AMB) | payer OTHER, SELFPAY ==
--- NOTE | 2025-05-05 14:08 | A.OFFVIS_ITS ---
Vital Signs 05/05/25 14:09 Height 5 ft 2 in Weight 253 lb 8.505 oz BMI 46.4 BP 140/76 H Blood Pressure Location Lt brachial Position Sitting Pulse 82 Pulse Source Pulse Oximeter Pulse Oximetry (%) 94 Oxygen Delivery Method Room Air Intake Visit Reasons: copd Allergies seafood Allergy (Severe, Verified 05/05/25 14:12) Swelling and Hives ibuprofen (From Motrin) Allergy (Mild, Verified 05/05/25 14:12) Throat Closed montelukast Allergy (Mild, Verified 05/05/25 14:12) Rash tezepelumab-ekko (From Tezspire) Adverse Reaction (Severe, Verified 05/05/25 14:12) Swelling benzodiazepine Allergy (Mild, Uncoded 08/02/24 14:15) Rash HPI Comments Details: 70-year-old lady, former under 10 pack-year smoker, quit 30 years prior with underlying history of obesity, MIKAELA on CPAP, asthma on Xolair and Trelegy and possible diagnosis of COPD who is transferring her care from [facility] pulmonary. Patient states that her respiratory symptoms have been well controlled on the current regimen of trilogy, albuterol MDI, and Xolair. She has had CPAP setup with [employer], however she has not been receiving her supplies. She denies any rece nt asthma exacerbations. She is having difficulties with her CPAP are. Her CPAP is more than 5 years old and she did get initially from [employer]. The CPAP therapy has been affecting beneficial. However, recently she started developing mold inside her machine. She is very reluctant to use it specially because her comorbidities and risks of worsening respiratory status due to the mold exposure. I did call [employer], her [email or web address] company to see if any arrangements can be made. She has had multiple sleep studies the last when she did get was that [facility]. Did did recommend CPAP of 12 cm. Therefore, I will put her on APAP with a pressure of 10 to 14. 05/19/2023 the patient is here for a pulmonary follow-up visit. The patient continues to have significant daytime drowsiness. Her [place] score continues to be elevated 07/11. The patient does have moderate to severe sleep apnea with significant hypoxia significant tachycardia during her apneic episodes. She needs to start APAP LETY. The patient had tried CPAP in the past but was not able to tolerated. Now she understands with increased cardiovascular risk factors that the CPAP therapy is very important. She is eager to get back to using it. Part the major issue was the mask fitting. We did talk about different masks chest the F30 I mask which may be a good fit for her. Her asthma continues to be in good control with Dupixent. She continues on the Trelegy and we had decrease the dose to the 100 mcg dose which she seems to be tolerating since the last visit. We will request a APAP machine from a [employer] in order for her to be started on therapy as soon as possible. 06/19/2023 the patient is here for sick visit. Apparently she was in her usual state health until recently when she went to [place] with her family. While she was there she did a lot of walking. When she came back she started developing worsening chest tightness and cough. Moderate severity. Feels congested but can not expectorate. Denies any fevers or chills. She did get toe state for COVID-19 which was negative. The patient continues use her respiratory therapy her nebulizer although she has not seen any significant improvement. We did bring urine. She did get vaccinated for RSV which is reassuring. Still I did a flu/ RSV/ COVID swab. It all turned out negative. The patient does have increased chest tightness and wheezing with prolonged expiratory phase. She will be treated for an asthma exacerbation. If the patient is no better she will call back the office for further evaluation. 11/03/2023 the patient is here for a hospital follow-up visit. She was in usual state health until back in September when she is developed worsening respiratory symptoms. Positive sick contacts. Significant chest congestion and cough. She could not tolerate his symptoms and longer and she did go to the [facility]. The [facility]. She had a chest x-ray wh hiram I personally reviewed demonstrating a hazy opacity in the right lower lobe area and also to some degree on the left. I did compare to her previous chest x-ray which she did not have those changes. Therefore she likely had a component of bronchopneumonia exacerbating her asthma. The patient did have antibiotics Augmentin which help. She also continue with respiratory therapy and she finish her course of prednisone. Now she is back to her baseline. The patient has been feeling better. She is tolerating respiratory therapy.. Will plan to repeat a chest x-ray to make sure that she has resolution of the airspace disease. The patient should return in 3-4 months or sooner if she develops any worsening symptoms. 02/23/2024 the patient is here for a pulmonary follow-up visit. She still complains of significant dyspnea on exertion. She did have a recent Holter monitor but she has not gotten the results. She is wondering if she needs oxygen. During the office visit we did taken for brief walking oximetry. The patient used use a cane and also has a wheelchair. Very limited. Even with very limited activity she was very short of breath during our brief ambulation while she was using a cane. Dyspnea score was 7/10. Heart rate went up to about 130 beats per minute which was regular. And her pulse ox 95%. Explained to her that her work of breathing is mainly due to the elevated heart rate and she does have enough pulmonary reserve to maintain her pulse ox reasonable. Will have her undergo blood work to make sure she does not have any significant anemia or look for heart failure. She does have significant lower extremity edema likely contributing to her symptoms. I do believe that a brief diuretics will help her with her cardiac function. The patient also has having significant shortness breath while sleeping. Will go ahead and request an overnight oximetry at this time. 05/20/2024 the patient is here for a hospital follow-up visit. Apparently she started the has few days later she started developing significant rash and also joint pains. To the point that she could not even ambulate. She was taken to [facility] where she was briefly admitted to the hospital. She was given steroids. She can not think of anything else new that she took around the same time. She is pretty sure that reaction was to the biologic therapy. She already had a reaction to Dupixent. Explained to her this point no further biologic therapy should be provided for her. In the meantime she will continue with current respiratory therapy. She does not having significant wheezing at this time. She will continue with the prednisone taper. If once she stops to taper her symptoms start recurrent she will call me so I can send additional prednisone to the pharmacy. In addition to that will go ahead and request an overnight oximetry to check her oxygen while she is sleeping at nighttime on her CPAP. She continues uses CPAP although she does have headaches in the morning. 08/02/2024 The patient is here for a pulmonary follow up visit. her breathing is better on the current therapy. She does have significant daytime drosiness with EPWORTH 11/24. She did have a sleep study with severe MIKAELA and hypoxia. We will request a in lab titration study at this time. She continue with her respiratory therapy. She does have difficulty walking and dyspnea and does have a scooter for assistance. Holding off on Biologics at this time. 11/01/2024 the patient is here for a pulmonary follow-up visit. Overall the patient has been doing well from an asthma standpoint. She continues her respiratory medicines with good effect. She is still having a reaction to where she had her biologic injection. She is having an area looked at that is still p ainful in the arm. Hopefully settle down with time. In the meantime she continues to have significant daytime drowsiness. She did undergo a split study demonstrating severe sleep apnea. She was able to be titrated on APAP and she did well. She does have an APAP but is old in his on working effectively. Also has mold. Therefore will request a replacement APAP at this time and will continue her with the N30i air touch mask the feeds were well. If she has difficulties tolerating the APAP we can always consider BiPAP as per the recommendations of the sleep study. She will continue with the current respiratory therapy. Otherwise if the patient has any issues she will call for an earlier assessment. 05/05/2025 the patient is here for a pulmonary follow-up visit. Overall the patient has been doing very well. She has been trying to use CPAP. She did get a new mask that she is seems to tolerate very well, FP Radha fullface mask. She did bring it in and we were able to make sure that it was a good fit. The patient needs to start using the machine more than 4 hours a night. She was having issues with an error message. We did look at it and make sure to corrected. Now the machine is working appropriately in his should not cause her to have anymore error messages or automatic shut off at least at this time. From a respiratory status she continues to do well. She continues on the Daliresp. She also continues on the Trelegy inhaler. We did look at her last chest x-ray from February 2024 demonstrating some increased atelectasis. Will plan to repeat the x-ray the next time. Clinically she is feeling well. Will follow-up in 6 months if she has any issues prior to this she will call for an earlier assessment. [facility] Medical History (Updated 08/02/24 @ 23:05 by Daniel Schuster MD) Tachycardia Bronchopneumonia Asthma MIKAELA (obstructive sleep apnea) MIKAELA on CPAP Asthma-COPD overlap syndrome Social History Patient Tobacco Use Status: Former Tobacco user Tobacco use type: Cigarette Years Smoked: 4 years Current occupational status: disabled Review of Systems Const Reports daytime sleepiness, Reports difficulty sleeping, Reports fatigue, Denies fever(s), Reports headache(s) and Denies night sweats ENT Denies change in voice, Reports headache(s), Denies lip swelling, Denies mouth pain, Reports nasal congestion, Reports nasal discharge and Denies tongue swelling Card Denies chest pain, Denies dyspnea and Reports dyspnea on exertion Resp Reports chest congestion, Reports cough, Denies dyspnea, Reports dyspnea on ex ertion and Reports wheezing GI Denies abdominal pain Musc Reports abnormal gait, Reports myalgias, Reports arthralgias, Reports joint swelling and Reports limited range of motion Skin/Breast Reports erythema and Reports rash Neuro Denies Neuro-related abnormal movements, Reports abnormal gait and Reports headache(s) Psych Denies no additional complaints Endo Reports fatigue Shayne/Lymph Denies easy bleeding and Denies lymphadenopathy Aller/Immun Denies lip swelling, Denies tongue swelling and Reports wheezing Physical Exam Vital Signs: Last Vital Signs Pulse 82 05/05/25 14:09 BP 140/76 H 05/05/25 14:09 Pulse Ox 94 05/05/25 14:09 Oxygen Delivery Method Room Air 05/05/25 14:09 BMI result Body Mass Index 46.4 Const General: no acute distress and alert HEENT General nose exam: Abnormal external nose present and Nasal discharge present Eyes Conjunctivae: conjunctival abnormal bilateral conjunctival injection Pupils: Equal, round and reactive pupils present Neck Neck: Yes normal visual inspection, Yes full ROM and Yes no lymphadenopathy Chest Chest palpation & inspection: normal inspection of the chest Resp Effort & Inspection: prolonged expiratory phase Auscultation: no wheezes and diminished lung sounds Cardio Rate: tachycardic Rhythm: regular rhythm Heart sounds: S1 normal heart sound present and S2 normal heart sound present GI Palpation (GI): Soft to palpation and nontender Auscultation: normal bowel sounds General: Yes no CVA tenderness Back/Spine/Pelvis Back: no CVA tenderness Skin General skin exam: rashes and/or lesions noted Neuro Cranial nerves: Yes Equal, round and reactive pupils present Assessment & Plan Assessment & Plan (1) Asthma: Code(s): J45.909 - Unspecified asthma, uncomplicated Category: Medical Qualifiers: Asthma complication type: uncomplicated Asthma persistence: persistent Asthma severity: severe Qualified Code(s): J45.50 - Severe persistent asthma, uncomplicated (2) Asthma-COPD overlap syndrome: Code(s): J44.9 - Chronic obstructive pulmonary disease, unspecified Category: Medical Plan: Increase Daliresp 500 mcg Add Budesonide Continue Trelegy Zpack (3) Cough: Code(s): R05.9 - Cough, unspecified Category: Medical Qualifiers: Cough type: unspecified Qualified Code(s): R05.9 - Cough, unspecified (4) Tachycardia: Code(s): R00.0 - Tachycardia, unspecified Category: Medical Plan continue Trelegy 100mcg Continue Daliresp 500 mcg daily (allergic to the generic medicine) short-acting beta agonist as needed conitnue PAP therapy, requesting FP Khadijah [facility] ([employer]) Low Na diet CXR follow-up in 4-6 months Orders: Orders XR chest 2V Today R05.9 - Cough, unspecified Coding Level of Care Code Est Pt Level 4 (16654) Complex EM visit Add On G2211 Diagnoses Severe persistent asthma without complication J45.50 Asthma complication type: uncomplicated Asthma persistence: persistent Asthma severity: severe Asthma-COPD overlap syndrome J44.9 Cough, unspecified type R05.9 Cough type: unspecified Tachycardia R00.0 Time Spent (min) 18
[2025-05-05 14:09] VITALS: BP 140/76; PULSE 82; O2SAT 94; BMI 46.4
== END 2025-05-05 14:59 | disposition home or self-care (01) ==
LOC: HO.HPS 13:35
PROVIDERS: PCP Internal Medicine; Visit Provider Hospitalist
DX: J45.50 Severe persistent asthma, uncomplicated (principal); J44.9 Chronic obstructive pulmonary disease, unspecified; R05.9 Cough, unspecified; R00.0 Tachycardia, unspecified
CPT/HCPCS: 99214; G2211

== ENCOUNTER → 2025-05-05 13:34 | Outpatient (BNVA) | payer OTHER, SELFPAY | PROVIDERS: PCP Internal Medicine; Visit Provider Hospitalist | DX: J45.50 Severe persistent asthma, uncomplicated (principal); J44.9 Chronic obstructive pulmonary disease, unspecified; R05.9 Cough, unspecified; R00.0 Tachycardia, unspecified; Z79.899 Other long term (current) drug therapy | CPT/HCPCS: 99212 ==